=== PATIENT | female | born 1970 | race Caucasian/White ===

== ENCOUNTER 2017-01-12 09:47 | Emergency (ER) | payer MEDICAID ==
[~2017-01-12] VITALS: Ht 152.4 cm; Wt 86.2 kg
[~2017-01-12 09:47] MED LIST: ACET650S53 PO; Acetaminophen/Hydrocodone Bi PO; IBUP-1842 PO
[2017-01-12 10:11] VITALS: BP 136/89
--- NOTE | 2017-01-12 10:46 | NUR ---
Patient ambulated to bed 04.
--- NOTE | 2017-01-12 10:47 | NUR ---
PT PRESENTS TO ER W/C/O SORE THROAT X3 DAYS. HX HTN; DENIES N/V/D; SKIN IS PINK/WARM/DRY; AAOX4 WITH EVEN AND STEADY GAIT; LUNGS CLEAR BL; HR EVEN AND REGULAR; PT DENIES ANY FEVER, CP, SOB, OR COUGH AT THIS TIME; PATIENT STATES PAIN OF 10/10 AT THIS TIME; VSS; PATIENT POSITIONED FOR COMFORT; HOB ELEVATED; BEDRAILS UP X2; BED DOWN. ER MD MADE AWARE OF PT STATUS.
--- NOTE | 2017-01-12 11:07 | NUR ---
DR MARAVILLA ASSESSING AAO PT AT BEDSIDE
[2017-01-12] MEDS ORDERED: AMOXICILLIN 500 MG CAP PO ONE (11:20)
[2017-01-12] MEDS ORDERED: LIDOCAINE VISCOUS 2% 20 ML UDC PO ONE (11:20)
--- NOTE | 2017-01-12 11:30 | NUR ---
APRIL PT TAKEN OFF THE UNIT FOR XRAY ON THE NECK VIA WHEEL CHAIR BY [email or web address]
[2017-01-12 11:57] VITALS: BP 135/98
--- NOTE | 2017-01-12 11:57 | NUR ---
Patient discharged with v/s stable. Written and verbal after care instructions given and explained. Patient alert, oriented and verbalized understanding of instructions. Ambulatory with steady gait. All questions addressed prior to discharge. ID band removed. Patient advised to follow up with PMD. Rx of ARITHROMYCIN, LIDOCAINE given. Patient educated on indication of medication including possible reaction and side effects. Opportunity to ask questions provided and answered.
== END 2017-01-12 10:46 | disposition home or self-care (01) ==
LOC: MED 09:47
DX: J02.9 Acute pharyngitis, unspecified (principal); I10 Essential (primary) hypertension
CPT/HCPCS: 70360; 71010; 99284

== ENCOUNTER 2017-06-07 11:52 | Emergency (ER) | payer MEDICAID ==
[~2017-06-07] VITALS: Ht 152.4 cm; Wt 91.9 kg
[2017-06-07 11:53] VITALS: BP 143/90
[2017-06-07] MEDS ORDERED: PROP20TA28 PO (12:01)
[2017-06-07] MEDS ORDERED: FLUO10TA4 PO (12:03)
[2017-06-07] MEDS ORDERED: GABA300C PO (12:04)
--- NOTE | 2017-06-07 13:18 | NUR ---
PT AMBULATED TO BED 3.
--- NOTE | 2017-06-07 13:20 | NUR ---
Latricia banks in [facility] - 06/07/17 at 1320 by ANNA PATIENT TO BED 3.
--- NOTE | 2017-06-07 13:20 | NUR ---
46F BIB FAMILY C/O RT LOWER BACK PAIN, RADIATES TO LEFT LOWER BACK, PRESSURE, 10/10 X 3 DAYS; PT STATES NO TRAUMA OR INJURY TO SITE AT THIS TIME; NO SWELLING NOTED TO SITE AT THIS TIME; PT C/O NAUSEA, BUT STATES NO VOMITING OR DIARRHEA AT THIS TIME; ABDOMEN SOFT, NON-TENDER, ACTIVE BOWEL SOUNDS X 4 QUADRANTS; PT AA&OX4, PERRLA, BL LUNG LUNG SOUNDS, RR EVEN/UNLABORED, SKIN IS WARM/DRY/INTACT AT THIS TIME; STEADY GAIT; PT RESTING IN BED WITH HOB ELEVATED AND IN LOWEST POSITION; POSITIONED FOR COMFORT; ER MD MADE AWARE OF STATUS. WILL CONTINUE TO MONITOR.
--- NOTE | 2017-06-07 13:25 | NUR ---
ER MD DR. PEREZ EVALUATING PT AT BEDSIDE.
[2017-06-07] MEDS ORDERED: oxyCODONE/APAP 5/325 MG 1 TAB TAB PO ONE (13:50)
--- NOTE | 2017-06-07 13:57 | NUR ---
PT TAKEN TO CT VIA W/C ACCOMPANIED BY HUMAN RESOURCES SUPERVISOR.
[2017-06-07] MEDS ORDERED: KETOROLAC 60 MG/2 ML VIAL IM ONE (15:15)
[2017-06-07 15:46] VITALS: BP 131/88
--- NOTE | 2017-06-07 15:46 | NUR ---
Patient discharged with v/s stable. Written and verbal after care instructions given and explained. Patient alert, oriented and verbalized understanding of instructions. Ambulatory with steady gait. All questions addressed prior to discharge. ID band removed. Patient advised to follow up with PMD. Rx of IBUPROFEN 800MG, PERCOCET 10MG-325MG TAB & FLEXERIL 10MG TAB given. Patient educated on indication of medication including possible reaction and side effects. Opportunity to ask questions provided and answered.
== END 2017-06-07 15:46 | disposition home or self-care (01) ==
LOC: MED 11:52
DX: S39.012A Strain of muscle, fascia and tendon of lower back, initial encounter (principal); I10 Essential (primary) hypertension; Z90.89 Acquired absence of other organs; X58.XXXA Exposure to other specified factors, initial encounter; Y93.89 Activity, other specified; Y92.89 Other specified places as the place of occurrence of the external cause; Y99.8 Other external cause status
CPT/HCPCS: 72110; 81002; 81025; 96372; 99284; J1885

== ENCOUNTER 2017-11-17 12:35 | Emergency (ER) | payer MEDICAID ==
[~2017-11-17] VITALS: Ht 152.4 cm; Wt 94.3 kg
[~2017-11-17 12:35] MED LIST changes: +FLUO10TA4 PO; +GABA300C PO; +PROP20TA28 PO
[2017-11-17 12:43] VITALS: BP 138/93
[2017-11-17] MEDS ORDERED: SIMV10TA1 PO (12:49)
[2017-11-17] MEDS ORDERED: ACET-2858 PO (12:49)
[2017-11-17] MEDS ORDERED: ESTR1TAB19 PO (12:49)
[2017-11-17] MEDS ORDERED: NACL 0.9% 1,000 ML IV SCH (14:02)
[2017-11-17] MEDS ORDERED: FAMOTIDINE 20 MG/2 ML VIAL IVP ONE (14:05)
[2017-11-17] MEDS ORDERED: ONDANSETRON 4 MG/2 ML VIAL IVP ONE (14:05)
[2017-11-17] MEDS ORDERED: KETOROLAC 30 MG/ML VIAL IVP ONE (14:05)
[2017-11-17] MEDS ORDERED: diphenhydrAMINE 50 MG/ML VIAL IVP ONE (14:05)
[2017-11-17] MEDS ORDERED: HYDROmorphone PFS 2 MG/ML SYR IVP ONE (14:05)
[2017-11-17 15:01] LABS: BASOPHILS # (AUTO) 0.3 K/uL (0.00-0.22); EOSINOPHILS # (AUTO) 1.1 K/uL (0-0.4); HEMATOCRIT 38.5 % (36-48); HEMOGLOBIN 12.9 g/dL (12.0-16.0); MEAN CORPUSCULAR HEMOGLOBIN 28 pg (27-31); MEAN CORPUSCULAR HGB CONC 34 g/dL (33-37); MEAN CORPUSCULAR VOLUME 83 fL (80-94); MONOCYTES # (AUTO) 0.9 K/uL (0.8-1.0); NEUTROPHILS # (AUTO) 4.4 K/uL (1.8-7.7); PLATELET COUNT (AUTO) 307 K/uL (140-450); RED BLOOD CELL COUNT(AUTO) 4.63 MIL/uL (4.20-5.40); RED CELL DISTRIBUTION WIDTH 12.8 % (11.6-13.7); WHITE BLOOD COUNT (AUTO) 9.8 K/uL (4.8-10.8)
[2017-11-17 15:09] LABS: ANION GAP 14.9 (8-16); CREATININE 0.8 mg/dL (0.6-1.3); POTASSIUM 3.9 mmol/L (3.5-5.1)
[2017-11-17 15:15] LABS: ALBUMIN 3.6 g/dL (3.4-5.0); TOTAL BILIRUBIN 0.2 mg/dL (0.0-1.0)
[2017-11-17 15:58] LABS: APPEARANCE,URINE CLEAR (CLEAR); BILIRUBIN,URINE NEGATIVE (NEGATIVE); BLOOD, URINE 1+ (NEGATIVE); COLOR,URINE YELLOW (YELLOW); LEUKOCYTE ESTERASE ,URINE NEGATIVE (NEGATIVE); NITRITE, URINE NEGATIVE (NEGATIVE); PH,URINE 5.5 (5.0-9.0); UGLUCOSE NEGATIVE (NEGATIVE)
[2017-11-17 16:19] LABS: RBC,URINE 0-5 (RARE) /HPF (0-5); WBC,URINE NONE SEEN /HPF (0-5)
[2017-11-17 17:25] VITALS: BP 152/89
== END 2017-11-17 17:25 | disposition home or self-care (01) ==
LOC: MED 12:35
DX: N23 Unspecified renal colic (principal); N28.89 Other specified disorders of kidney and ureter; I10 Essential (primary) hypertension; Z79.899 Other long term (current) drug therapy
CPT/HCPCS: 36415; 74176; 80053; 81001; 82150; 83690; 84703; 85025; 96361; 96374; 96375; 99285; J1170; J1200; J1885; J2405; J3490; J7030

== ENCOUNTER 2018-06-03 20:08 | Inpatient (IN) | payer MEDICAID ==
[~2018-06-03] VITALS: Ht 152.4 cm; Wt 96.2 kg
[~2018-06-03 20:08] MED LIST changes: +ACET-2858 PO; -ACET650S53 PO; -Acetaminophen/Hydrocodone Bi PO; +ESTR1TAB19 PO; -FLUO10TA4 PO; -IBUP-1842 PO; +SIMV10TA1 PO
[2018-06-03 20:14] VITALS: BP 130/78
--- NOTE | 2018-06-03 20:17 | NUR ---
TO BED # 11 AMBULATORY, REPORT GIVEN TO HELEN RN
--- NOTE | 2018-06-03 20:25 | NUR ---
PATIENT IS A 47 Y/O FEMALE WHO PRESENTS TO THE ED C/O BACK PAIN. PT STATES THAT IT STARTED X3 DAYS AGO. PT REPORTS 10/10 ACHING LOW BACK PAIN THAT RADIATES TO THE ABDOMEN. PT DENIES CP, SOB, N/V/D. PT AWAKE AND ALERT, RR EVEN/UNLABORED. PT REPOSITIONED FOR COMFORT, BED IN LOWEST POSITION. ER MD DR. GREENE NOTIFIED. WILL CONTINUE TO MONITOR.
[2018-06-03] MEDS ORDERED: NACL 0.9% 1,000 ML IV SCH (22:33)
[2018-06-03] MEDS ORDERED: KETOROLAC 30 MG/ML VIAL IVP ONE (22:35)
[2018-06-03 22:56] LABS: HEMATOCRIT 38.5 % (36-48); HEMOGLOBIN 12.4 g/dL (12.0-16.0); MEAN CORPUSCULAR HEMOGLOBIN 27 pg (27-31); MEAN CORPUSCULAR HGB CONC 32 g/dL (33-37); MEAN CORPUSCULAR VOLUME 84.8 fL (80-94); PLATELET COUNT (AUTO) 384 K/uL (140-450); RED BLOOD CELL COUNT(AUTO) 4.54 MIL/uL (4.20-5.40); RED CELL DISTRIBUTION WIDTH 13.6 % (11.6-13.7); WHITE BLOOD COUNT (AUTO) 13.2 K/uL (4.8-10.8)
[2018-06-03 22:58] LABS: APPEARANCE,URINE HAZY (CLEAR); BILIRUBIN,URINE NEGATIVE (NEGATIVE); BLOOD, URINE 2+ (NEGATIVE); COLOR,URINE YELLOW (YELLOW); LEUKOCYTE ESTERASE ,URINE NEGATIVE (NEGATIVE); NITRITE, URINE NEGATIVE (NEGATIVE); UGLUCOSE NEGATIVE (NEGATIVE)
[2018-06-03 23:07] LABS: RBC,URINE 11-20 (MOD) /HPF (0-5); WBC,URINE 0-5 (RARE) /HPF (0-5)
--- NOTE | 2018-06-03 23:13 | NUR ---
PATIENT TAKEN TO CT VIA GURNEY.
[2018-06-03 23:21] LABS: EOSINOPHILS % (MANUAL) 6 % (0-4); LYMPHOCYTES % (MANUAL) 24 % (20-46); MONOCYTES % (MANUAL) 8 % (5-12)
--- NOTE | 2018-06-03 23:30 | NUR ---
PT RETURN FROM CT
[2018-06-03] MEDS ORDERED: MORPHINE SULFATE 4 MG/ML SYR IVP ONE (23:40)
[2018-06-04 00:11] LABS: ALBUMIN 3.5 g/dL (3.4-5.0); CARBON DIOXIDE 26.6 mmol/L (21-32); CREATININE 0.8 mg/dL (0.6-1.3); POTASSIUM 3.6 mmol/L (3.5-5.1); TOTAL BILIRUBIN 0.1 mg/dL (0.0-1.0)
--- NOTE | 2018-06-04 00:17 | NUR ---
Patient appears to be resting comfortably in bed. Vital Signs within normal limits. Respirations even and unlabored.
[2018-06-04] MEDS ORDERED: cefTRIAXone 2,000 MG in DEXTROSE 5% 100 ML IV ONE (00:55)
[2018-06-04] MEDS ORDERED: cefTRIAXone 2,000 MG VIAL ONE (01:27)
--- NOTE | 2018-06-04 01:30 | NUR ---
PATIENT IS RESTING AT THIS TIME. NO SIGNS OF DISTRESS.
[2018-06-04] MEDS ORDERED: ACETAMINOPHEN 325 MG TAB PO PRN (02:10)
[2018-06-04] MEDS ORDERED: ZOLPIDEM 5 MG TAB PO PRN (02:10)
[2018-06-04] MEDS ORDERED: HYDROcodone/APAP 7.5/325 MG 1 TAB PO PRN (02:10)
[2018-06-04] MEDS ORDERED: ONDANSETRON 4 MG/2 ML VIAL IVP PRN (02:10)
[2018-06-04 02:50] LABS: PROTHROMBIN TIME 9.2 secs (10.8-13.4)
--- NOTE | 2018-06-04 02:57 | NUR ---
Patient will be admitted to care of DR. CARTER. Admited to M/S. Will go to room 104B. Belongings list completed. Report to GABY WALTER.
[2018-06-04 02:58] LABS: FREE T4 (FREE THYROXINE) 0.91 ng/dL (0.76-1.46); MAGNESIUM 1.8 mg/dL (1.8-2.4); PHOSPHORUS 2.9 mg/dL (2.5-4.9)
--- NOTE | 2018-06-04 03:00 | NUR ---
RECEIVED REPORT FROM DAY SHIFT RN FOR CONTINUITY OF CARE. PT IS A/OX3, ON ROOM AIR, AMBULATORY WITH STEADY GAIT. ABLE TO MAKE NEEDS KNOWN, ABLE TO FOLLOW COMMANDS. PT SKIN IS INTACT. PT HAS 20G IV TO LEFT AC, ASYMPTOMATIC, INTACT AND PATENT. DISCUSSED PLAN OF CARE WITH PT, PT VERBALIZED UNDERSTANDING. BLOOD PRESSURE ELEVATED PT STATES IT IS DUE TO PAIN, OTHER VITAL SIGNS WITHIN NORMAL LIMITS. OBTAINED MRSA SWAB AND SENT TO LAB. PT STABLE, NO SIGNS OF DISTRESS NOTED AT THIS TIME. BED IN LOWEST POSITION, BED ALARM ON. CALL LIGHT WITHIN REACH, WILL CONTINUE TO MONITOR.
[2018-06-04] MEDS: NACL 0.9% 1,000 ML IV SCH ×3 (03:30→18:09)
[2018-06-04] MEDS: HYDROcodone/APAP 10/325 MG 1 TAB TAB PO PRN ×3 (03:44→18:36)
--- NOTE | 2018-06-04 03:44 | NUR ---
PT C/O 02/10 BACK PAIN, ADMINISTERED NORCO ORDERED FOR PAIN AT THAT LEVEL. PT TOLERATED WELL.
[2018-06-04] MEDS ORDERED: BACLOFEN 10 MG TAB PO SCH (03:55)
[2018-06-04] MEDS ORDERED: GABA300C PO (03:55)
[2018-06-04] MEDS ORDERED: BACL10TA4 PO (03:55)
[2018-06-04] MEDS ORDERED: LISI10TA11 PO (03:55)
[2018-06-04 04:15] VITALS: BP 158/85
--- NOTE | 2018-06-04 05:00 | NUR ---
PT STATES PAIN INCREASED, SPOKE TO DR BALTAZAR ABOUT IT. WILL ORDER TORADOL FOR PAIN.
[2018-06-04] MEDS: KETOROLAC 15 MG/ML VIAL IVP PRN ×2 (05:47→12:29)
--- NOTE | 2018-06-04 06:16 | NUR ---
PATIENT HAS BEEN SCREENED AND CATEGORIZED HIGH NUTRITION RISK. PATIENT WILL BE SEEN WITHIN 1-2 DAYS OF ADMISSION. 06/05/18-06/06/18 JESSICA MACK MS, RDN
--- NOTE | 2018-06-04 07:20 | NUR ---
RECEIVED BEDSIDE REPORT FROM MUFF WINDER NURSE. PATIENT IS AWAKE, ALERT AND ORIENTEDX4. BOLIVIAN SPEAKER. NO SIGNS OF DISTRESS ON ROOM AIR. SHE IS AMBULATORY. SKIN IS INTACT. L AC 20G INFUSING NS AT 125. CLEAN, DRY AND INTACT. BED IN LOW POSITION. CALL LIGHT WITHIN REACH. WILL CONTINUE TO MONITOR THE PATIENT
[2018-06-04 08:00] VITALS: BP 142/80
--- NOTE | 2018-06-04 08:05 | NUR ---
PATIENT IS EATING BREAKFAST. NO SIGNS OF DISTRESS. WILL CONTINUE TO MONITOR
--- NOTE | 2018-06-04 08:37 | NUR ---
06/04/18 RD INITIAL ASSESSMENT COMPLETED PLEASE REFER TO NUTRITION ASSESSMENT UNDER CARE ACTIVITY FOR ESTIMATED NUTRITIONAL NEEDS. RD RECOMMENDATIONS: 1. CONTINUE ON REGULAR DIET TOLERATED. 2. RD WILL F/U 7 DAYS; LOW RISK. JESSICA MACK MS, RDN
[2018-06-04] MEDS: LACTOBACILLUS RHAMNOSUS GG 1 EACH CAP PO SCH ×3 (08:55→16:39)
[2018-06-04] MEDS: LISINOPRIL 10 MG TAB PO SCH (08:56)
[2018-06-04] MEDS: GABAPENTIN 300 MG CAP PO SCH ×3 (08:56→16:39)
[2018-06-04] MEDS: DOCUSATE SODIUM 100 MG GELCAP PO SCH ×2 (08:57→20:53)
[2018-06-04] MEDS ORDERED: ESTRADIOL 1 MG TAB PO SCH (09:00)
--- NOTE | 2018-06-04 09:50 | NUR ---
ADMINISTERED PRN PAIN MEDS. PATIENT TOLERATED WELL. BED IN LOW POSITION. CALL LIGHT WITHIN REACH, WILL CONTINUE TO MONITOR
[2018-06-04] MEDS ORDERED: PATIENTS OWN TABLET PO SCH (10:20)
--- NOTE | 2018-06-04 10:54 | NUR ---
ADMINISTERED PATIENTS ESTERASE TABLET PER PHARMACY NOW. PATIENT TOLERATED WELL
--- NOTE | 2018-06-04 10:55 | NUR ---
ADMINISTERED MED. PATIENT TOLERATED WELL. BED IN LOW POSITION. CALL LIGHT WITHIN REACH. WILL CONTINUE TO MONITOR
[2018-06-04 11:11] LABS: CHOL/HDL RATIO 3.8 (1-4.5)
--- NOTE | 2018-06-04 12:33 | NUR ---
ADMINISTERED MEDS. PATIENT TOLERATED WELL. ADMINISTERED PRN TORADOL FOR PAIN 03/13. WILL REASSESS. FAMILY At bedside. will continue to monitor
[2018-06-04] MEDS: MORPHINE SULFATE 2 MG/ML SYR IVP PRN ×2 (14:30→21:12)
--- NOTE | 2018-06-04 14:34 | NUR ---
PATIENT COMPLAINS OF 10/10 PAIN. ADMINISTERED MEDS. PATIENT TOLERATED WELL. WILL CONTINUE TO MONITOR THE PATIENT
[2018-06-04 16:00] VITALS: BP 120/81
[2018-06-04] MEDS: SUCRALFATE 1 GM TAB PO SCH ×2 (16:39→20:53)
--- NOTE | 2018-06-04 16:41 | NUR ---
ADMINISTERED MEDS. PATIENT TOLERATED WELL. NO SIGNS OF DISTRESS. BED IN LOW POSITION. CALL LIGHT WITHIN REACH. WILL CONTINUE TO MONITOR
--- NOTE | 2018-06-04 18:00 | NUR ---
AT BEDSIDE. NO SIGNS OF DISTRESS. WILL CONTINUE TO MONITOR THE PATIENT.
--- NOTE | 2018-06-04 19:00 | NUR ---
GAVE BEDSIDE REPORT TO FRAUD MANAGER NURSE. PATIENT ENDORSED IN STABLE CONDITION
--- NOTE | 2018-06-04 19:05 | NUR ---
RECEIVED REPORT FROM DAY SHIFT RN FOR CONTINUITY OF CARE. PT IS FRENCH SPEAKING, A/OX4, ON ROOM AIR, AMBULATORY WITH STEADY GAIT. ABLE TO MAKE NEEDS KNOWN, ABLE TO FOLLOW COMMANDS. PT SKIN IS INTACT. PT HAS 20G IV TO LEFT AC, ASYMPTOMATIC, INTACT AND PATENT INFUSING NS@125ML/HR. DISCUSSED PLAN OF CARE WITH PT, PT VERBALIZED UNDERSTANDING. VITAL SIGNS WITHIN NORMAL LIMITS. PT STABLE, NO SIGNS OF DISTRESS NOTED AT THIS TIME. BED IN LOWEST POSITION, BED ALARM ON. CALL LIGHT WITHIN REACH, WILL CONTINUE TO MONITOR.
[2018-06-04] MEDS: SIMVASTATIN 10 MG TAB PO SCH (20:53)
--- NOTE | 2018-06-04 21:12 | NUR ---
ADMINISTERED SCHEDULED MEDICATIONS, AND PT REQUESTED MORPHINE. CAME BACK WITH MORPHINE AND ADMINISTERED IT WELL. PT TOLERATED WELL.
[2018-06-05] VITALS: BP 131/86
--- NOTE | 2018-06-05 | NUR ---
VITAL SIGNS WITHIN NORMAL LIMITS. PT STABLE, NO SIGNS OF DISTRESS NOTED AT THIS TIME. BED IN LOWEST POSITION, BED ALARM ON. CALL LIGHT WITHIN REACH, WILL CONTINUE TO MONITOR.
[2018-06-05] MEDS: NACL 0.9% 1,000 ML IV SCH ×3 (02:04→22:57)
--- NOTE | 2018-06-05 02:22 | NUR ---
PT SLEEPING, EASILY AWAKENED. PT STABLE, NO SIGNS OF DISTRESS NOTED AT THIS TIME. BED IN LOWEST POSITION, BED ALARM ON. CALL LIGHT WITHIN REACH, WILL CONTINUE TO MONITOR.
--- NOTE | 2018-06-05 04:36 | NUR ---
PT RESTING IN BED. PT STABLE, NO SIGNS OF DISTRESS NOTED AT THIS TIME. BED IN LOWEST POSITION, BED ALARM ON. CALL LIGHT WITHIN REACH, WILL CONTINUE TO MONITOR.
[2018-06-05] MEDS: KETOROLAC 15 MG/ML VIAL IVP PRN ×3 (06:07→23:22)
--- NOTE | 2018-06-05 06:08 | NUR ---
PT C/O STRONG HEADACHE 03/13. MEDICATED WITH TORADOL, PT TOLERATED WELL.
[2018-06-05 07:09] LABS: HEMATOCRIT 36.5 % (36-48); MEAN CORPUSCULAR HEMOGLOBIN 28 pg (27-31); MEAN CORPUSCULAR HGB CONC 33 g/dL (33-37); PLATELET COUNT (AUTO) 325 K/uL (140-450); RED BLOOD CELL COUNT(AUTO) 4.29 MIL/uL (4.20-5.40); RED CELL DISTRIBUTION WIDTH 13.8 % (11.6-13.7); WHITE BLOOD COUNT (AUTO) 9.4 K/uL (4.8-10.8)
[2018-06-05 07:25] LABS: ANION GAP 8.9 (8-16); CARBON DIOXIDE 27.7 mmol/L (21-32); CREATININE 0.6 mg/dL (0.6-1.3); POTASSIUM 3.6 mmol/L (3.5-5.1)
--- NOTE | 2018-06-05 07:25 | NUR ---
ENDORSED PT TO DAY SHIFT RN FOR CONTINUITY OF CARE. PT IN STABLE CONDITION.
--- NOTE | 2018-06-05 07:26 | NUR ---
RECEIVED PT FROM PM NURSE AT THE BEDSIDE. PT SLEEPING ON HER LFT SIDE. TUNISIAN SPEAKING ONLY. AWAKE, INTRODUCED SELF TO HER AND UPDATED HER BOARD. HAS NS IVF INFUSING AT 125ML/HR. IV ACCESS ON LF AC 20 G. NO SIGN OF DISTRESS. WILL CONTINUE TO MONITOR PT.
[2018-06-05 07:31] LABS: MAGNESIUM 1.7 mg/dL (1.8-2.4); PHOSPHORUS 3.5 mg/dL (2.5-4.9)
[2018-06-05 07:58] LABS: BASOPHILS % (MANUAL) 0 % (0-2); EOSINOPHILS % (MANUAL) 9 % (0-4); LYMPHOCYTES % (MANUAL) 36 % (20-46); MONOCYTES % (MANUAL) 16 % (5-12)
[2018-06-05 08:00] VITALS: BP 139/93
[2018-06-05] MEDS ORDERED: MAG SULF 2000 MG/WATER PREMIX 50 ML IV ONE (08:10)
[2018-06-05] MEDS: DOCUSATE SODIUM 100 MG GELCAP PO SCH ×2 (09:15→20:49)
[2018-06-05] MEDS: SUCRALFATE 1 GM TAB PO SCH ×4 (09:15→20:49)
[2018-06-05] MEDS: LISINOPRIL 10 MG TAB PO SCH (09:15)
[2018-06-05] MEDS: GABAPENTIN 300 MG CAP PO SCH ×3 (09:15→17:57)
[2018-06-05] MEDS: LACTOBACILLUS RHAMNOSUS GG 1 EACH CAP PO SCH ×3 (09:15→17:57)
[2018-06-05] MEDS: MORPHINE SULFATE 2 MG/ML SYR IVP PRN ×2 (09:16→20:50)
[2018-06-05] MEDS: PATIENTS OWN TABLET PO SCH (09:22)
[2018-06-05] MEDS ORDERED: TAMSULOSIN 0.4 MG CAP PO SCH (09:25)
[2018-06-05] MEDS: HYDROcodone/APAP 10/325 MG 1 TAB TAB PO PRN (11:35)
[2018-06-05] MEDS: BACLOFEN 10 MG TAB PO SCH ×2 (13:38→20:49)
[2018-06-05 16:00] VITALS: BP 113/71
--- NOTE | 2018-06-05 16:10 | NUR ---
CHECKED ON PT. STILL COMPLAINING OF PAIN. STATES HER PAIN IS THROBBING IN BACK OF HER NECK AND RADIATING TOWARDS HER BACK OF THE SPINE. MD AWARE, TALKING TO DOCTOR. ORDER NEW PAIN MEDICATION FOR PT.
[2018-06-05] MEDS ORDERED: APAP/BUTAL/CAFF 325/50/40 MG 1 TAB PO SCH (16:20)
--- NOTE | 2018-06-05 17:59 | NUR ---
ADMINISTERED MEDS TO PT ORDERED. STATES TO HAVE LESS PAIN 7/10 AT THIS TIME. WILL ASSESS HER IN IN HOUR AGAIN. FOOD TRAY AT THE BEDSIDE. EATS A SMALL PORTION. INFORMED HER TO USE CALL LIGHT FOR ANY HELP . WILL CONTINUE TO MONITOR PT.
--- NOTE | 2018-06-05 19:25 | NUR ---
ENDORSED PT TO PM NURSE FOR CONTINUITY OF CARE. PT IN STABLE CONDITION.
--- NOTE | 2018-06-05 19:26 | NUR ---
RECEIVED REPORT FROM DAY SHIFT NURSE DOUGLAS-RN AT BEDSIDE. PT FAMILY AT BEDSIDE. AOX4, ON ROOM AIR WITH LEFT AC #20G- PATENT RUNNING NS 0.9% AT 125ML/HR. DISCUSSED PLAN OF CARE AND PT VERBALIZED UNDERSTANDING. NO S/S OF RESPIRATORY DISTRESS OR DISCOMFORT NOTED AT THIS TIME. BED IN LOWEST POSITION, BED BREAKS ON, BOTH SIDE RAILS UP. BED SIDE TABLE AND CALL LIGHT ARE WITHIN REACH. WILL CONTINUE TO MONITOR.
[2018-06-05 20:00] VITALS: BP 124/95
--- NOTE | 2018-06-05 20:00 | NUR ---
VITAL SIGNS TAKEN AND TOLERATED WELL. NO S/S OF RESPIRATORY DISTRESS OR DISCOMFORT NOTED AT THIS TIME. WILL CONTINUE TO MONITOR.
[2018-06-05] MEDS: SIMVASTATIN 10 MG TAB PO SCH (20:49)
--- NOTE | 2018-06-05 20:50 | NUR ---
SCHEDULED MEDICATIONS GIVEN AND TOLERATED WELL. PT C/O PAIN 06/13 AND MEDICATED WITH MORPHINE SULFATE. NO S/S OF RESPIRATORY DISTRESS. WILL CONTINUE TO MONITOR.
--- NOTE | 2018-06-05 23:22 | NUR ---
PT CONTINUES TO C/O PAIN STATING "MORPHINE SULFATE DIDN'T REALLY HELP WITH THE PAIN." MEDICATED WITH TORADOL. NO S/S OF RESPIRATORY DISTRESS OR DISCOMFORT NOTED AT THIS TIME. WILL CONTINUE TO MONITOR.
[2018-06-06] VITALS: BP 110/62
--- NOTE | 2018-06-06 | NUR ---
NEW BAG OF IVF HUNG. VITAL SIGNS TAKEN AND TOLERATED WELL. PT STATED "TORADOL HELPS REDUCE PAIN LEVEL BETTER THAN MORPHINE." PAIN WITHIN TOLERABLE LEVEL. NO S/S OF RESPIRATORY DISTRESS OR DISCOMFORT NOTED AT THIS TIME. WILL CONTINUE TO MONITOR.
--- NOTE | 2018-06-06 02:00 | NUR ---
PT SLEEPING AT THIS TIME. NO S/S OF RESPIRATORY DISTRESS OR DISCOMFORT NOTED AT THIS TIME. WILL CONTINUE TO MONITOR.
[2018-06-06] MEDS: NACL 0.9% 1,000 ML IV SCH ×4 (02:09→23:37)
--- NOTE | 2018-06-06 04:00 | NUR ---
PT SLEEPING IN BED. NO S/S OF RESPIRATORY DISTRESS OR DISCOMFORT NOTED AT THIS TIME. WILL CONTINUE TO MONITOR.
[2018-06-06] MEDS: HYDROcodone/APAP 10/325 MG 1 TAB TAB PO PRN ×2 (05:12→11:07)
[2018-06-06] MEDS: BACLOFEN 10 MG TAB PO SCH ×3 (05:12→20:36)
--- NOTE | 2018-06-06 05:15 | NUR ---
SCHEDULED MEDICATION LIORESAL ADMINISTERED BY KILNMAN NURSE SUMMER-RN. PT TOLERATED WELL. NO S/S OF RESPIRATORY DISTRESS. PT C/O PAIN- MEDICATED WITH NORCO. PT TOLERATED WELL. WILL CONTINUE TO MONITOR.
[2018-06-06 06:37] LABS: BASOPHILS # (AUTO) 0.1 K/uL (0.00-0.22); BASOPHILS % (AUTO) 1.1 % (0.0-2.0); EOSINOPHILS # (AUTO) 1.1 K/uL (0-0.4); EOSINOPHILS % (AUTO) 11.3 % (0.0-4.0); HEMATOCRIT 36.5 % (36-48); LYMPHOCYTES # (AUTO) 2.5 K/uL (2.5-16.5); LYMPHOCYTES % (AUTO) 25.2 % (20.5-51.1); MEAN CORPUSCULAR HEMOGLOBIN 28 pg (27-31); MEAN CORPUSCULAR HGB CONC 33 g/dL (33-37); MEAN CORPUSCULAR VOLUME 84.7 fL (80-94); MONOCYTES # (AUTO) 0.8 K/uL (0.8-1.0); MONOCYTES % (AUTO) 8.2 % (1.7-9.3); NEUTROPHILS # (AUTO) 5.4 K/uL (1.8-7.7); NEUTROPHILS % (AUTO) 54.2 % (42.2-75.2); PLATELET COUNT (AUTO) 323 K/uL (140-450); RED BLOOD CELL COUNT(AUTO) 4.31 MIL/uL (4.20-5.40); RED CELL DISTRIBUTION WIDTH 13.6 % (11.6-13.7); WHITE BLOOD COUNT (AUTO) 9.9 K/uL (4.8-10.8)
[2018-06-06] MEDS: KETOROLAC 15 MG/ML VIAL IVP PRN ×2 (06:40→16:03)
--- NOTE | 2018-06-06 06:40 | NUR ---
PT CONTINUES TO C/O PAIN 03/13- TORADOL GIVEN BY DATABASE ANALYST NURSE LUCY-SABA. PT TOLERATED WELL. NO S/S OF RESPIRATORY DISTRESS AT THIS TIME. WILL CONTINUE TO MONITOR.
[2018-06-06 06:55] LABS: ANION GAP 10.8 (8-16); CREATININE 0.6 mg/dL (0.6-1.3); POTASSIUM 3.8 mmol/L (3.5-5.1)
--- NOTE | 2018-06-06 07:09 | NUR ---
ENDORSED PT CARE TO DAY SHIFT NURSE SITAL-RN FOR CONTINUITY OF CARE.
[2018-06-06 08:00] VITALS: BP 125/66
[2018-06-06] MEDS ORDERED: TAMSULOSIN 0.4 MG CAP PO SCH (08:30)
[2018-06-06] MEDS: DOCUSATE SODIUM 100 MG GELCAP PO SCH ×2 (08:45→20:36)
[2018-06-06] MEDS: LACTOBACILLUS RHAMNOSUS GG 1 EACH CAP PO SCH ×3 (08:45→16:03)
[2018-06-06] MEDS: GABAPENTIN 300 MG CAP PO SCH ×3 (08:45→16:04)
[2018-06-06] MEDS: LISINOPRIL 10 MG TAB PO SCH (08:46)
[2018-06-06] MEDS: SUCRALFATE 1 GM TAB PO SCH (08:46)
--- NOTE | 2018-06-06 08:47 | NUR ---
ADMINISTERED MEDS TO PT. TOLERATED WELL. STATES TO HAVE REDUCED STOVER. PT LYING ON BED, TALKING . NO SIGN OF DISTRESS NOTED. CALL LIGHT WITHIN REACH. WILL CONTINUE MONITORING PT.
[2018-06-06] MEDS: PATIENTS OWN TABLET PO SCH (09:00)
--- NOTE | 2018-06-06 12:45 | NUR ---
ADMINISTERED MEDS TO PT ORDERED. PT FAMILY AT THE BEDSIDE. STATES HER BACK PAIN HAS BEEN REDUCED. NO SIGN OF DISTRESS. NO STOVER AT THIS TIME. INFORMED HER TO USE CALL LIGHT FRO ANY HELP. WILL CONTINUE TO MONITOR PT.
[2018-06-06 16:00] VITALS: BP 136/83
--- NOTE | 2018-06-06 16:14 | NUR ---
CHECKED ON PT. COMPLAINING OF PAIN 9/10 ON HER BACK AND AT HEAD, ADMINISTERED TORADOL ASD THE SCHEDULED MEDS ORDERED. PT FAMILY AT THE BEDSIDE. CALL LIGHT WITHIN REACH. INFORMED HER TO USE CALL LIGHT FOR ANY HELP . WILL CONTINUE TO MONITOR PT.
--- NOTE | 2018-06-06 17:30 | NUR ---
CHECKED ON PT. FAMILY AT THE BEDSIDE. ASSESSED HER PAIN. STATES HER PAIN IS REDUCED TO 3, FEELING BETTER THAN BEFORE. NO SIGN OF DISTRESS. WILL CONTINUE TO MONITOR FL.
--- NOTE | 2018-06-06 19:23 | NUR ---
ENDORSED PT TO PM NURSE. PT IN STABLE CONDITION.
--- NOTE | 2018-06-06 19:35 | NUR ---
RECEIVED FROM AM RN IN BED AWAKE AND ALERT. ABLE TO VERBALIZE SIMPLE NEEDS WELL. CARE PLANS FOR THE NIGHT DISCUSSED WITH HER AND CALL LIGHT WITH IN REACH. DX. OF PYELONEPHRITIS. AFEBRILE. NO COMPLAINTS DONE OF ANY PAIN AT THIS TIME. WITH IVF SITE TO LAC# 20 INTACT AND NO INFILTRATION.
[2018-06-06] MEDS: SIMVASTATIN 10 MG TAB PO SCH (20:36)
--- NOTE | 2018-06-06 21:52 | NUR ---
CAME OUT FROM RESTROOM. NO PAIN COMPLAINTS. MEDICATED WITH AMBIEN REQUESTED BY PT. CALL LIGHT WITH IN REACH.
[2018-06-06 23:21] VITALS: BP 130/84
--- NOTE | 2018-06-07 01:43 | NUR ---
PT. SLEEPING WELL. NO RESTLESSNESS NOTED. CALL LIGHT WITH IN REACH.
--- NOTE | 2018-06-07 03:00 | NUR ---
PT. SLEEPING. NO RESTLESSNESS NOTED. CALL LIGHT WITH IN REACH.
[2018-06-07] MEDS: BACLOFEN 10 MG TAB PO SCH (04:33)
--- NOTE | 2018-06-07 04:36 | NUR ---
P.O. MEDICATION/BACLOFEN TAKEN WELL BY PT. CALL LIGHT WITH IN REACH. DENIES ANY DOLOR AT THIS TIME.
[2018-06-07] MEDS: KETOROLAC 15 MG/ML VIAL IVP PRN (06:13)
--- NOTE | 2018-06-07 06:34 | NUR ---
PT. AWAKE. NEW IVF LINE INSERTED TO RIGHT WRIST #22 RT LAC#20 IVF SITE INFILTRATED. MEDICATED WITH TORADOL IVP REQUESTED RT LOWER CHRONIC BACK PAIN.
--- NOTE | 2018-06-07 07:14 | NUR ---
RECEIVED REPORT FROM NIGHTSHIFT NURSE AT BEDSIDE. PATIENT IS AWAKE AT THIS TIME. PATIENT PRESENTS IN SEMI-FOWLERS POSITION. PATIENT IS ALERT AND ORIENTED X4. NO DISTRESS NOTED AT THIS TIME. PATIENT HAS AN IV ON HER LEFT HAND 22G RUNNING NACL AT 90 ML/HR. LOWERED BED TO LOWEST SETTING. CALL LIGHT WITHIN REACH OF PATIENT. UPDATED BOARD IN ROOM. WILL CONTINUE TO MONITOR PATIENT.
--- NOTE | 2018-06-07 07:14 | NUR ---
ENDORSED TO THE NEXT RN FOR CONTINUITY OF CARE AWAKE AND ALERT. NO SOB. CALL LIGHT WITH IN REACH.
[2018-06-07 08:00] VITALS: BP 135/88
[2018-06-07 08:01] LABS: BASOPHILS # (AUTO) 0.2 K/uL (0.00-0.22); BASOPHILS % (AUTO) 2.1 % (0.0-2.0); EOSINOPHILS # (AUTO) 1.2 K/uL (0-0.4); EOSINOPHILS % (AUTO) 11.4 % (0.0-4.0); HEMATOCRIT 36.8 % (36-48); HEMOGLOBIN 12.1 g/dL (12.0-16.0); LYMPHOCYTES # (AUTO) 2.2 K/uL (2.5-16.5); LYMPHOCYTES % (AUTO) 21.4 % (20.5-51.1); MEAN CORPUSCULAR HEMOGLOBIN 28 pg (27-31); MEAN CORPUSCULAR HGB CONC 33 g/dL (33-37); MONOCYTES # (AUTO) 0.7 K/uL (0.8-1.0); NEUTROPHILS % (AUTO) 58.1 % (42.2-75.2); PLATELET COUNT (AUTO) 308 K/uL (140-450); RED BLOOD CELL COUNT(AUTO) 4.33 MIL/uL (4.20-5.40); RED CELL DISTRIBUTION WIDTH 13.5 % (11.6-13.7); WHITE BLOOD COUNT (AUTO) 10.3 K/uL (4.8-10.8)
[2018-06-07] MEDS ORDERED: ACET-2863 PO (08:08)
[2018-06-07] MEDS ORDERED: SULF-59 PO (08:08)
[2018-06-07] MEDS: LISINOPRIL 10 MG TAB PO SCH (08:38)
[2018-06-07] MEDS: DOCUSATE SODIUM 100 MG GELCAP PO SCH (08:38)
[2018-06-07] MEDS: GABAPENTIN 300 MG CAP PO SCH (08:39)
[2018-06-07] MEDS: LACTOBACILLUS RHAMNOSUS GG 1 EACH CAP PO SCH (08:39)
[2018-06-07] MEDS: HYDROcodone/APAP 10/325 MG 1 TAB TAB PO PRN (08:39)
--- NOTE | 2018-06-07 08:39 | NUR ---
PATIENT TOOK AM MEDICATIONS. PATIENT TOLERATED WELL.
[2018-06-07] MEDS: PATIENTS OWN TABLET PO SCH (08:48)
[2018-06-07 08:54] LABS: ANION GAP 14.2 (8-16); CARBON DIOXIDE 24.6 mmol/L (21-32); CREATININE 0.8 mg/dL (0.6-1.3); POTASSIUM 3.8 mmol/L (3.5-5.1)
--- NOTE | 2018-06-07 10:00 | NUR ---
PATIENT RESTING AT THIS TIME. NO DISTRESS NOTED. WILL CONTINUE TO MONITOR PATIENT.
--- NOTE | 2018-06-07 11:25 | NUR ---
OFFERED TO USE TRANSLATING SERVICE FOR PATIENT DURING DISCHARGE. PATIENT REFUSED AND WANTED HER TO DAUGHTER TO LISTEN AND HELP TRANSLATE. PATIENT SIGNED ALL DISCHARGE INSTRUCTIONS. EVERYTHING CLEARLY EXPLAINED. REMOVED IV LINE FROM PATIENT WITH CATHETER STILL INTACT. PATIENT GATHERED ALL BELONGINGS. RETRIEVED PATIENT'S OWN MEDICATIONS FROM PHARMACY. REMOVED PATIENT'S IDENTIFICATION BAND. PATIENT LEFT THE UNIT IN STABLE CONDITION WITH DAUGHTER.
== END 2018-06-07 11:25 | disposition home or self-care (01) | DRG 720 ==
LOC: MED 20:08 → MTU 06-04 02:09
PROVIDERS: ADMIT Family Medicine; ATTEND Family Medicine
DX: A41.9 Sepsis, unspecified organism (principal); E87.8 Other disorders of electrolyte and fluid balance, not elsewhere classified; E66.01 Morbid (severe) obesity due to excess calories; E83.42 Hypomagnesemia; N10 Acute pyelonephritis; I10 Essential (primary) hypertension; E78.5 Hyperlipidemia, unspecified; Z68.41 Body mass index [BMI] 40.0-44.9, adult; G62.9 Polyneuropathy, unspecified; Z87.442 Personal history of urinary calculi; G89.29 Other chronic pain; Z90.49 Acquired absence of other specified parts of digestive tract; Z90.710 Acquired absence of both cervix and uterus; E78.00 Pure hypercholesterolemia, unspecified; R31.9 Hematuria, unspecified
CPT/HCPCS: 36415; 71045; 80048; 80053; 81001; 81025; 82150; 83036; 83690; 83735; 83880; 84100; 84439; 84443; 84484; 85025; 85610; 85730; 87081; 87086; 96361; 96365; 96375; 99285; J0696; J1885; J2270; J3475; J7030; J7060

== ENCOUNTER 2018-06-17 16:50 | Emergency (ER) | payer MEDICAID ==
[~2018-06-17] VITALS: Ht 152.4 cm; Wt 96.2 kg
[~2018-06-17 16:50] MED LIST changes: +ACET-2863 PO; +BACL10TA4 PO; +LISI10TA11 PO; -PROP20TA28 PO; +SULF-59 PO
[2018-06-17 17:01] VITALS: BP 144/97
[2018-06-17] MEDS ORDERED: NACL 0.9% 1,000 ML IV ONE (17:25)
[2018-06-17] MEDS ORDERED: KETOROLAC 30 MG/ML VIAL IVP ONE (17:25)
[2018-06-17 18:28] LABS: BASOPHILS # (AUTO) 0.1 K/uL (0.00-0.22); BASOPHILS % (AUTO) 1.8 % (0.0-2.0); EOSINOPHILS # (AUTO) 1.1 K/uL (0-0.4); EOSINOPHILS % (AUTO) 13.6 % (0.0-4.0); HEMATOCRIT 35.4 % (36-48); HEMOGLOBIN 11.6 g/dL (12.0-16.0); LYMPHOCYTES # (AUTO) 2.6 K/uL (2.5-16.5); LYMPHOCYTES % (AUTO) 31.4 % (20.5-51.1); MEAN CORPUSCULAR HEMOGLOBIN 28 pg (27-31); MEAN CORPUSCULAR HGB CONC 33 g/dL (33-37); MEAN CORPUSCULAR VOLUME 84.4 fL (80-94); MONOCYTES # (AUTO) 0.9 K/uL (0.8-1.0); MONOCYTES % (AUTO) 10.9 % (1.7-9.3); NEUTROPHILS # (AUTO) 3.4 K/uL (1.8-7.7); NEUTROPHILS % (AUTO) 42.3 % (42.2-75.2); PLATELET COUNT (AUTO) 287 K/uL (140-450); RED CELL DISTRIBUTION WIDTH 13.8 % (11.6-13.7); WHITE BLOOD COUNT (AUTO) 8.1 K/uL (4.8-10.8)
[2018-06-17 18:35] LABS: ANION GAP 11.2 (8-16); CARBON DIOXIDE 28.5 mmol/L (21-32); CREATININE 1.2 mg/dL (0.6-1.3); POTASSIUM 3.7 mmol/L (3.5-5.1)
[2018-06-17 18:36] LABS: APPEARANCE,URINE CLEAR (CLEAR); BILIRUBIN,URINE NEGATIVE (NEGATIVE); BLOOD, URINE 1+ (NEGATIVE); COLOR,URINE YELLOW (YELLOW); LEUKOCYTE ESTERASE ,URINE NEGATIVE (NEGATIVE); NITRITE, URINE NEGATIVE (NEGATIVE); UGLUCOSE NEGATIVE (NEGATIVE)
[2018-06-17 18:43] LABS: ALBUMIN 3.3 g/dL (3.4-5.0); TOTAL BILIRUBIN 0.2 mg/dL (0.0-1.0)
[2018-06-17] MEDS ORDERED: MORPHINE SULFATE 2 MG/ML SYR IVP ONE (18:55)
[2018-06-17 19:50] LABS: RBC,URINE 0-5 (RARE) /HPF (0-5); WBC,URINE NONE SEEN /HPF (0-5)
[2018-06-17] MEDS ORDERED: ONDANSETRON 4 MG/2 ML VIAL IVP ONE (20:10)
[2018-06-17] MEDS ORDERED: DIAZEPAM 5 MG TAB PO ONE (20:20)
[2018-06-17] MEDS ORDERED: MORPHINE SULFATE 4 MG/ML SYR IVP ONE (20:20)
[2018-06-17 21:09] VITALS: BP 139/78
== END 2018-06-17 21:10 | disposition home or self-care (01) ==
LOC: MED 16:50
DX: S39.012A Strain of muscle, fascia and tendon of lower back, initial encounter (principal); N20.0 Calculus of kidney; E78.00 Pure hypercholesterolemia, unspecified; I10 Essential (primary) hypertension; Z90.89 Acquired absence of other organs; Z79.899 Other long term (current) drug therapy; X58.XXXA Exposure to other specified factors, initial encounter; Y93.89 Activity, other specified; Y92.89 Other specified places as the place of occurrence of the external cause; Y99.8 Other external cause status
CPT/HCPCS: 36415; 74176; 80053; 81001; 81025; 85025; 87086; 96374; 96375; 96376; 99285; J1885; J2270; J2405; J7030

== ENCOUNTER 2018-10-15 12:42 | Emergency (ER) | payer MEDICAID ==
[~2018-10-15] VITALS: Ht 162.6 cm; Wt 98.1 kg
[~2018-10-15 12:42] MED LIST changes: -ACET-2858 PO; -ACET-2863 PO; +HYDR-5092 PO; +HYDR-5123 PO
[2018-10-15 12:53] VITALS: BP 151/96
[2018-10-15] MEDS: KETOROLAC 30 MG/ML VIAL IM ONE (13:45)
[2018-10-15 15:12] LABS: APPEARANCE,URINE CLEAR (CLEAR); BILIRUBIN,URINE NEGATIVE (NEGATIVE); BLOOD, URINE TRACE-I (NEGATIVE); COLOR,URINE YELLOW (YELLOW); LEUKOCYTE ESTERASE ,URINE NEGATIVE (NEGATIVE); NITRITE, URINE NEGATIVE (NEGATIVE); UGLUCOSE NEGATIVE (NEGATIVE)
[2018-10-15] MEDS: MORPHINE SULFATE 4 MG/ML SYR IM ONE (15:40)
[2018-10-15 16:19] VITALS: BP 154/93
== END 2018-10-15 16:19 | disposition home or self-care (01) ==
LOC: MED 12:42
DX: R10.9 Unspecified abdominal pain (principal); M54.9 Dorsalgia, unspecified; Z87.442 Personal history of urinary calculi; Z79.891 Long term (current) use of opiate analgesic; Z79.2 Long term (current) use of antibiotics; Z79.899 Other long term (current) drug therapy; I10 Essential (primary) hypertension
CPT/HCPCS: 74176; 81003; 81025; 96372; 99284; J1885; J2270

== ENCOUNTER 2018-11-29 18:56 | Emergency (ER) | payer MEDICAID ==
[~2018-11-29] VITALS: Ht 152.4 cm; Wt 96.2 kg
[2018-11-29 19:25] VITALS: BP 121/52
--- NOTE | 2018-11-29 19:35 | NUR ---
PT BIB SELF FOR COUGH AND CHEST PAIN FOR PAST 3 DAYS. RR EVEN AND UNLABORED, BL BS CLEAR THROUGHOUT. PT HAS PRODUCTIVE COUGH. PT SITTING IN BED, APPEARS TO BE IN NO DISTRESS, DAUGHTER AT BEDSIDE.
--- NOTE | 2018-11-29 19:35 | NUR ---
PT TO ER BED 8
--- NOTE | 2018-11-29 19:37 | NUR ---
DR MARSHALL AT BEDSIDE.
--- NOTE | 2018-11-29 19:40 | NUR ---
XRAY AT BEDSIDE.
[2018-11-29] MEDS ORDERED: methylPREDNISolone SS 125 MG/2 ML VIAL IM ONE (19:45)
[2018-11-29] MEDS ORDERED: ALBUTEROL SULFATE/IPRATROPIU 3 ML SOL IH ONE ×2 (19:45→21:00)
--- NOTE | 2018-11-29 20:09 | NUR ---
PRT AT BEDSIDE FOR TX.
--- NOTE | 2018-11-29 21:00 | NUR ---
PT LAYING IN BED, IN NO DISTRESS, NO NEW NEEDS AT THIS TIME.
[2018-11-29] MEDS ORDERED: AZITHROMYCIN 250 MG TAB PO ONE (21:35)
[2018-11-29 21:46] VITALS: BP 135/96
--- NOTE | 2018-11-29 21:46 | NUR ---
Patient discharged with v/s stable. Written and verbal after care instructions given and explained. Patient alert, oriented and verbalized understanding of instructions. Ambulatory with steady gait. All questions addressed prior to discharge. ID band removed. Patient advised to follow up with PMD. Rx of AMOXICILLIN, PREDNISONE, ALBUTEROL given. Patient educated on indication of medication including possible reaction and side effects. Opportunity to ask questions provided and answered.
== END 2018-11-29 21:46 | disposition home or self-care (01) ==
LOC: MED 18:56
DX: J40 Bronchitis, not specified as acute or chronic (principal); I10 Essential (primary) hypertension; Z79.891 Long term (current) use of opiate analgesic; Z79.2 Long term (current) use of antibiotics
CPT/HCPCS: 71045; 87086; 87804; 94640; 96372; 99284; J2930; J7620; Q0092; 36415; 93005

== ENCOUNTER 2019-01-26 09:25 | Emergency (ER) | payer MEDICAID ==
[~2019-01-26] VITALS: Ht 152.4 cm; Wt 98.0 kg
[2019-01-26 09:29] VITALS: BP 159/95
--- NOTE | 2019-01-26 09:35 | NUR ---
Patient ambulated to bed 9 at this time.
--- NOTE | 2019-01-26 10:02 | NUR ---
48 YO/F BIB FAMILY MEMBER WITH CHIEF C/O 10/10 LOWER BACK PAIN X 4 DAYS RADIATING TO BILATERAL LOWER EXTREMITIES. PT DENIES ANY TRAUMA/INJURY. -N/V/D. AFEBRILE AT THIS TIME. PMH:HTN. SIDERAIL UP X1 FOR SAFETY. PENDING ER MD EVALUATION.
[2019-01-26] MEDS ORDERED: LACTULOSE 20 GM/30 ML UDC PO ONE (10:05)
[2019-01-26] MEDS ORDERED: KETOROLAC 60 MG/2 ML VIAL IM ONE (10:05)
[2019-01-26] MEDS ORDERED: MORPHINE SULFATE 4 MG/ML SYR IM ONE (10:05)
--- NOTE | 2019-01-26 10:23 | NUR ---
PT TRANSPORTED TO RADIOLOGY.
--- NOTE | 2019-01-26 10:32 | NUR ---
PT RETURNED FROM XRAY IN STABLE CONDITION
[2019-01-26 12:50] VITALS: BP 156/91
--- NOTE | 2019-01-26 12:51 | NUR ---
Patient discharged with v/s stable. Written and verbal after care instructions given and explained. Patient alert, oriented and verbalized understanding of instructions. Ambulatory with steady gait. All questions addressed prior to discharge. ID band removed. Patient advised to follow up with PMD. Rx of Voltaren XR tablets given. Patient educated on indication of medication including possible reaction and side effects. Opportunity to ask questions provided and answered.
== END 2019-01-26 12:51 | disposition home or self-care (01) ==
LOC: MED 09:25
DX: M54.41 Lumbago with sciatica, right side (principal); I10 Essential (primary) hypertension; Z87.442 Personal history of urinary calculi; Z79.891 Long term (current) use of opiate analgesic; Z79.2 Long term (current) use of antibiotics; Z79.899 Other long term (current) drug therapy
CPT/HCPCS: 72100; 81002; 81025; 96372; 99283; J1885; J2270

== ENCOUNTER 2019-08-23 15:59 | Emergency (ER) | payer MEDICAID ==
[~2019-08-23] VITALS: Ht 152.4 cm; Wt 99.8 kg
[2019-08-23 16:08] VITALS: BP 147/85
[2019-08-23] MEDS: cefTRIAXone 1,000 MG in LIDOCAINE MPF 1% 2.1 ML IM ONE (17:27)
[2019-08-23] MEDS: KETOROLAC 30 MG/ML VIAL IM ONE (17:28)
[2019-08-23 17:33] VITALS: BP 134/77
== END 2019-08-23 17:33 | disposition home or self-care (01) ==
LOC: MED 15:59
DX: N39.0 Urinary tract infection, site not specified (principal); I10 Essential (primary) hypertension; Z79.891 Long term (current) use of opiate analgesic; Z79.899 Other long term (current) drug therapy; Z79.2 Long term (current) use of antibiotics
CPT/HCPCS: 81002; 81025; 87086; 96372; 99283; J0696; J1885; J2001

== ENCOUNTER 2019-11-28 09:37 | Inpatient (IN) | payer MEDICAID ==
[~2019-11-28] VITALS: Ht 152.4 cm; Wt 99.8 kg
[2019-11-28 09:45] VITALS: BP 132/75
--- NOTE | 2019-11-28 09:52 | NUR ---
49/F C/O BILATERAL KNEE PAIN, L>R X 1 WEEK, NO INJURY AND NON RADIATING LEFT-SIDED CHEST PAIN X 2 DAYS. PT AMBULATORY WITHOUT ASSISTIVE DEVICE. STATES CHEST PAIN STARTED WHILE LYING DOWN/AT REST YESTERDAY AND LASTED FOR 5 HOURS. STATES CP HAS BEEN INTERMITTENT TODAY, NO SPECIFIC TRIGGERS. STATES SOB ACCOMPANYING CP. HR 77, SPO2 99% ON BEDSIDE MONITOR. STATES MILD NAUSEA WITHOUT VOMITING. LEFT CHEST WALL TTP, PT DENIES INJURY. BED LOCKED & LOW, BEDRAILS UP X1, ERMD TO EVALUATE. HX- HTN, HYPERCHOL, KIDNEY STONES
[2019-11-28] MEDS ORDERED: OMEP20TC12 PO (09:59)
[2019-11-28] MEDS ORDERED: LORA5SOL14 PO (09:59)
[2019-11-28] MEDS ORDERED: GABA300C PO (09:59)
[2019-11-28] MEDS ORDERED: MECL-303 PO (09:59)
[2019-11-28] MEDS ORDERED: HYDR-5092 PO (09:59)
[2019-11-28] MEDS ORDERED: CYCL10TA13 PO (09:59)
[2019-11-28] MEDS ORDERED: MSCON15 PO (09:59)
[2019-11-28] MEDS ORDERED: ELA10 PO (09:59)
[2019-11-28] MEDS ORDERED: SUMA100T1 PO (09:59)
--- NOTE | 2019-11-28 10:02 | NUR ---
DR GALE EVALUATING PT @ BEDSIDE
--- NOTE | 2019-11-28 10:09 | NUR ---
EMT AT BEDSIDE FOR EKG
[2019-11-28] MEDS ORDERED: KETOROLAC 30 MG/ML VIAL IVP ONE (10:10)
[2019-11-28] MEDS ORDERED: NITROGLYCERIN 0.4 MG TAB SL ONE (10:10)
[2019-11-28] MEDS ORDERED: ASPIRIN 81 MG TAB.CHEW PO ONE (10:10)
--- NOTE | 2019-11-28 10:13 | NUR ---
called pharmacy to bring nitroglycerin SL--not stocked in [facility]
--- NOTE | 2019-11-28 10:28 | NUR ---
BLOOD DRAW HANDED TO DEEP FRYER ASSEMBLER
--- NOTE | 2019-11-28 10:45 | NUR ---
PT SITTING IN BED, TALKING ON CELLPHONE AT THIS TIME. STATES PAIN HAS DECREASED TO 6 OR 7/10.
[2019-11-28 11:04] LABS: BASOPHILS # (AUTO) 0.2 K/uL (0.00-0.22); BASOPHILS % (AUTO) 2.1 % (0.0-2.0); EOSINOPHILS # (AUTO) 1.4 K/uL (0-0.4); HEMATOCRIT 37.3 % (36-48); LYMPHOCYTES # (AUTO) 2.6 K/uL (2.5-16.5); LYMPHOCYTES % (AUTO) 31.3 % (20.5-51.1); MEAN CORPUSCULAR HEMOGLOBIN 27 pg (27-31); MEAN CORPUSCULAR HGB CONC 32 g/dL (33-37); MEAN CORPUSCULAR VOLUME 84.1 fL (80-94); MONOCYTES # (AUTO) 0.8 K/uL (0.8-1.0); MONOCYTES % (AUTO) 9.4 % (1.7-9.3); NEUTROPHILS # (AUTO) 3.3 K/uL (1.8-7.7); NEUTROPHILS % (AUTO) 40.2 % (42.2-75.2); PLATELET COUNT (AUTO) 371 K/uL (140-450); RED BLOOD CELL COUNT(AUTO) 4.43 MIL/uL (4.20-5.40); WHITE BLOOD COUNT (AUTO) 8.1 K/uL (4.8-10.8)
[2019-11-28 11:17] LABS: ALBUMIN 3.7 g/dL (3.4-5.0); ANION GAP 13.8 (8-16); CARBON DIOXIDE 26.8 mmol/L (21-32); CREATININE 0.9 mg/dL (0.6-1.3); POTASSIUM 3.6 mmol/L (3.5-5.1); TOTAL BILIRUBIN 0.2 mg/dL (0.0-1.0)
--- NOTE | 2019-11-28 11:45 | NUR ---
PT RESTING IN BED, NO SIGNS OF DISTRESS. STATES PAIN IS VERY MILD NOW.
[2019-11-28] MEDS: NACL 0.9% 1,000 ML IV SCH (12:02)
[2019-11-28] MEDS ORDERED: LORazepam 2 MG/ML VIAL IM/IVP PRN (12:05)
[2019-11-28] MEDS ORDERED: HYDROcodone/APAP 5/325 MG 1 TAB TAB PO PRN (12:05)
[2019-11-28] MEDS ORDERED: ZOLPIDEM 5 MG TAB PO PRN (12:05)
[2019-11-28] MEDS ORDERED: DOCUSATE SODIUM 100 MG GELCAP PO PRN (12:05)
[2019-11-28] MEDS ORDERED: MORPHINE SULFATE 2 MG/ML SYR IVP PRN (12:05)
[2019-11-28] MEDS ORDERED: NITROGLYCERIN 0.4 MG TAB SL PRN (12:05)
[2019-11-28] MEDS ORDERED: ONDANSETRON 4 MG/2 ML VIAL IM/IVP PRN (12:05)
[2019-11-28] MEDS ORDERED: ACETAMINOPHEN 325 MG TAB PO PRN (12:05)
--- NOTE | 2019-11-28 12:50 | NUR ---
Patient will be admitted to care of DR MARIN. Admited to TELE. Will go to room 105B. Belongings list completed. Report to MATHIEU WALTER.
[2019-11-28 12:55] VITALS: BP 131/72
--- NOTE | 2019-11-28 12:55 | NUR ---
RECEIVED REPORT FROM ER NURSE STAR FOR CONTINUITY OF CARE. PT IS AAOX4, PARAGUAYAN SPEAKING. PT ABLE TO MAKE NEEDS KNOWN. PT IS ON RA. SKIN IS INTACT. PT DENIES SOB OR DISTRESS. PT STATES THAT CHEST PAIN IS AT A MINIMUM BUT COMPLAINS OF A LOT OF PAIN IN THE LOWER BACK FROM CHRONIC BACK PAIN. WILL MEDICATE PT. PT AMBULATORY WITHOUT ASSISTANCE. IV IN THE LEFT AC 2OG. ADEQUATE VOIDING AND BOWEL ELIMINATION. PER PT LAST BM WAS YESTERDAY MORNING. WILL REVIEW ORDERS FOR FLUIDS. MRSA SCREEN SWAB TAKEN. DISCUSSED POC WITH PT AND PT VERBALIZED UNDERSTANDING. BOARD UPDATED. WILL ROUND FREQUENTLY ON PT.
[2019-11-28 14:14] LABS: PHOSPHORUS 2.6 mg/dL (2.5-4.9); THYROID STIMULATING HORMONE 1.49 uIU/mL (0.34-3.74)
[2019-11-28 14:21] LABS: PROTHROMBIN TIME 9.9 secs (10.8-13.4)
--- NOTE | 2019-11-28 14:25 | NUR ---
PT RESTING IN BED WITH FAMILY AT BEDSIDE. ALL NEEDS MET. WILL CONTINUE TO ROUND FREQUENTLY ON PT. BED IN LOW POSITION, CALL LIGHT WITHIN REACH.
[2019-11-28] MEDS ORDERED: HYDROcodone/APAP 10/325 MG 1 TAB TAB PO PRN (15:40)
[2019-11-28] MEDS ORDERED: CYCLOBENZAPRINE 10 MG TAB PO PRN (15:40)
[2019-11-28] MEDS ORDERED: BACLOFEN 10 MG TAB PO SCH (15:40)
[2019-11-28] MEDS ORDERED: MORPHINE TAB ER 15 MG TABER PO PRN (15:40)
[2019-11-28] MEDS ORDERED: SUMAtriptan 50 MG TAB PO PRN (15:40)
[2019-11-28 16:00] VITALS: BP 127/62
--- NOTE | 2019-11-28 16:41 | NUR ---
PT TALKING WITH FAMILY AT BEDSIDE. ALL NEEDS MET. WILL CONTINUE TO ROUND ON PT.
[2019-11-28] MEDS: GABAPENTIN 300 MG CAP PO SCH (17:33)
--- NOTE | 2019-11-28 18:49 | NUR ---
PT SITTING IN BED WATCHING TV. AT BEDSIDE. ALL NEEDS MET. WILL CONTINUE TO ROUND FREQUENTLY ON PT. BED IN LOW POSITION, CALL LIGHT WITHIN REACH.
--- NOTE | 2019-11-28 19:20 | NUR ---
RECEIVED PATIENT FROM AM SHIFT NURSE IN STABLE CONDITION FOR CONTINUITY OF CARE. THAI SPEAKING, ABLE TO MAKE NEEDS KNOWN. FAMILY AT BEDSIDE. RESPIRATIONS EVEN, UNLABORED. NO C/O PAIN. NO S/SX ACUTE DISTRESS. IV SITE TO LEFT AC 20G PATENT/INTACT, INFUSING FLUIDS WELL. CALL LIGHT WITHIN REACH. WILL CONTINUE TO MONITOR.
--- NOTE | 2019-11-28 19:35 | NUR ---
ENDORSED PT TO FORENSIC PSYCHIATRIST FOR CONTINUITY OF CARE. PT IN STABLE CONDITION AT THIS TIME.
[2019-11-28 20:00] VITALS: BP 147/86
[2019-11-28] MEDS: METOPROLOL 25 MG TAB PO SCH (20:19)
--- NOTE | 2019-11-28 20:19 | NUR ---
PATIENT C/O MUSCLE SPASMS. MEDICATED ORDERED. CALL LIGHT WITHIN REACH. WILL CONTINUE TO MONITOR.
[2019-11-28] MEDS: MECLIZINE 25 MG TAB PO SCH (20:20)
[2019-11-28] MEDS ORDERED: SIMVASTATIN 10 MG TAB PO SCH (21:00)
--- NOTE | 2019-11-28 21:19 | NUR ---
REASSESSED PATIENT. PATIENT IS ASLEEP. NO S/SX ACUTE DISTRESS. CALL LIGHT WITHIN REACH. WILL CONTINUE TO MONITOR.
--- NOTE | 2019-11-28 23:37 | NUR ---
MADE ROUNDS. PATIENT IS ASLEEP AND IN STABLE CONDITION. NO C/O PAIN. NO S/SX ACUTE DISTRESS. CALL LIGHT WITHIN REACH. WILL CONTINUE TO MONITOR.
--- NOTE | 2019-11-28 23:59 | NUR ---
MEDICATED FOR ANXIETY ORDERED. LOW STIMULI ENVIRONMENT PROVIDED FOR PATIENT. CALL LIGHT WITHIN REACH. WILL CONTINUE TO MONITOR.
[2019-11-29] VITALS: BP 114/73
--- NOTE | 2019-11-29 01:07 | NUR ---
PATIENT IS ASLEEP AND IN STABLE CONDITION. NO C/O PAIN. NO S/SX ACUTE DISTRESS. CALL LIGHT WITHIN REACH. WILL CONTINUE TO MONITOR.
[2019-11-29] MEDS ORDERED: APAP/BUTAL/CAFF 325/50/40 MG 1 TAB PO PRN (02:40)
--- NOTE | 2019-11-29 03:00 | NUR ---
MADE ROUNDS. PATIENT IS ASLEEP AND CONTINUES IN STABLE CONDITION. NO C/O PAIN. NO S/SX ACUTE DISTRESS. CALL LIGHT WITHIN REACH. WILL CONTINUE TO MONITOR.
[2019-11-29 04:00] VITALS: BP 120/80
[2019-11-29] MEDS: NACL 0.9% 1,000 ML IV SCH ×2 (04:42→05:37)
--- NOTE | 2019-11-29 05:25 | NUR ---
PATIENT ASLEEP AND IN STABLE CONDITION. NO C/O PAIN. NO S/SX ACUTE DISTRESS. CALL LIGHT WITHIN REACH. WILL CONTINUE TO MONITOR.
--- NOTE | 2019-11-29 07:20 | NUR ---
RECEIVED PT REPORT FROM PACKING TRACTOR MACHINE OPERATOR NURSE ADILENE. PT IS ASLEEP AT THIS TIME, NO S/S OF ACUTE DISTRESS OR SOB NOTED. PT IS ON ROOM AIR, SKIN IS INTACT. IV SITE L AC 20 G INFUSING NS 60 ML/HR. CALL LIGHT IS WITHIN REACH. PT IS AMBULATORY AND ABLE TO MAKE NEEDS KNOWN.
--- NOTE | 2019-11-29 07:22 | NUR ---
ENDORSED PATIENT TO AM SHIFT IN STABLE CONDITION FOR CONTINUITY OF CARE.
[2019-11-29 07:51] LABS: ANION GAP 12.1 (8-16); CARBON DIOXIDE 26.9 mmol/L (21-32); CREATININE 0.8 mg/dL (0.6-1.3)
[2019-11-29 07:53] LABS: MAGNESIUM 1.9 mg/dL (1.8-2.4)
[2019-11-29 08:00] VITALS: BP 125/80
[2019-11-29 08:19] LABS: HEMATOCRIT 33.6 % (36-48); HEMOGLOBIN 11.5 g/dL (12.0-16.0); MEAN CORPUSCULAR HEMOGLOBIN 28 pg (27-31); MEAN CORPUSCULAR HGB CONC 34 g/dL (33-37); MEAN CORPUSCULAR VOLUME 81.6 fL (80-94); PLATELET COUNT (AUTO) 380 K/uL (140-450); RED BLOOD CELL COUNT(AUTO) 4.12 MIL/uL (4.20-5.40); RED CELL DISTRIBUTION WIDTH 12.5 % (11.6-13.7); WHITE BLOOD COUNT (AUTO) 8.1 K/uL (4.8-10.8)
--- NOTE | 2019-11-29 08:24 | NUR ---
PATIENT HAS BEEN SCREENED AND CATEGORIZED MODERATE NUTRITION RISK. PATIENT WILL BE SEEN WITHIN 3-5 DAYS OF ADMISSION. 12/01/19 12/03/[address]
[2019-11-29] MEDS ORDERED: TAMSULOSIN 0.4 MG CAP PO SCH (08:30)
[2019-11-29 08:39] LABS: LYMPHOCYTES % (MANUAL) 35 % (20-46)
[2019-11-29 08:40] LABS: BASOPHILS % (MANUAL) 1 % (0-2); EOSINOPHILS % (MANUAL) 25 % (0-4); MONOCYTES % (MANUAL) 8 % (5-12)
[2019-11-29 08:42] LABS: CHOL/HDL RATIO 4.1 (1-4.5)
[2019-11-29] MEDS ORDERED: AMITRIPTYLINE 10 MG TAB PO SCH (09:00)
[2019-11-29] MEDS ORDERED: ASPIRIN 81 MG TAB.CHEW PO SCH (09:00)
[2019-11-29] MEDS ORDERED: LISINOPRIL 10 MG TAB PO SCH (09:00)
[2019-11-29] MEDS ORDERED: ESTRADIOL 1 MG TAB PO SCH (09:00)
[2019-11-29] MEDS ORDERED: ATORVASTATIN 20 MG TAB PO SCH (09:00)
[2019-11-29] MEDS: MECLIZINE 25 MG TAB PO SCH (09:07)
[2019-11-29] MEDS: GABAPENTIN 300 MG CAP PO SCH (09:08)
[2019-11-29] MEDS: METOPROLOL 25 MG TAB PO SCH (09:09)
--- NOTE | 2019-11-29 09:16 | NUR ---
AM MEDS ADMINISTERED, PT TOLERATED WELL. DAILY ORDERED ESTRADIOL TAB IS NOT AVAILABLE PER PHARMACY. PT'S DAUGHTER IS AT BEDSIDE AND WAITING FOR PT'S DISCHARGE.
--- NOTE | 2019-11-29 11:01 | NUR ---
SC INSTRUCTIONS GIVEN TO PT AND DAUGHTER. THEY VERBALIZED UNDERSTANDING OF DC INSTRUCTIONS. IV SITE AND WRIST BAND REMOVED. TELE BOX REMOVED. PT IS UP TO DATE ON HER FLU VACCINE (RECEIVED 07/2019). PT LEFT IN STABLE CONDITION WITH ALL HER BELONGINGS. Addendum: 11/29/19 at 1105 by Roslyn Le RN *DC INSTRUCTIONS
== END 2019-11-29 11:00 | disposition home or self-care (01) | DRG 203 ==
LOC: MED 09:37 → MTU 12:02
PROVIDERS: ADMIT General Practice; ATTEND General Practice
DX: M94.0 Chondrocostal junction syndrome [Tietze] (principal); E66.01 Morbid (severe) obesity due to excess calories; I11.9 Hypertensive heart disease without heart failure; G89.29 Other chronic pain; M54.9 Dorsalgia, unspecified; G43.909 Migraine, unspecified, not intractable, without status migrainosus; E78.5 Hyperlipidemia, unspecified; G62.9 Polyneuropathy, unspecified; M17.12 Unilateral primary osteoarthritis, left knee; N20.0 Calculus of kidney; F41.9 Anxiety disorder, unspecified; K21.9 Gastro-esophageal reflux disease without esophagitis; F32.9 Major depressive disorder, single episode, unspecified; Z68.41 Body mass index [BMI] 40.0-44.9, adult; Z71.3 Dietary counseling and surveillance; Z87.442 Personal history of urinary calculi; Z90.49 Acquired absence of other specified parts of digestive tract; Z90.710 Acquired absence of both cervix and uterus; Z90.721 Acquired absence of ovaries, unilateral
CPT/HCPCS: 36415; 71045; 80048; 80053; 83036; 83690; 83735; 83880; 84100; 84443; 84484; 85025; 85610; 85730; 87081; 93005; 96374; 97116; 97161-GP; 99285; J1644; J1885; J2060; J2270; J7030; J8597; Q0092

== ENCOUNTER 2020-03-28 18:07 | Emergency (ER) | payer MEDICAID ==
[~2020-03-28 18:07] MED LIST changes: +CYCL10TA13 PO; +ELA10 PO; -HYDR-5123 PO; +LORA5SOL14 PO; +MECL-303 PO; +MSCON15 PO; +OMEP20TC12 PO; -SULF-59 PO; +SUMA100T1 PO
== END 2020-03-28 20:15 | disposition left against medical advice (07) ==
LOC: MED 18:07
DX: M54.9 Dorsalgia, unspecified (principal); Z53.21 Procedure and treatment not carried out due to patient leaving prior to being seen by health care provider

== ENCOUNTER 2020-07-08 15:32 | Emergency (ER) | payer MEDICAID ==
[~2020-07-08] VITALS: Ht 152.4 cm; Wt 101.6 kg
[2020-07-08 15:54] VITALS: BP 147/89
--- NOTE | 2020-07-08 16:08 | NUR ---
49 y/o female from home c/o lower back tenderness, flank pain, dysuria, and hematuria x 4 days. Denies n/v/d. /10 burning pain upon urination. Abd soft, round, nontender to palp. Afebrile upon arrival. Positioned for comfort, VSS medhx: HTN
--- NOTE | 2020-07-08 16:10 | NUR ---
Pt ambulated to restroom for collection of urine
[2020-07-08] MEDS ORDERED: MORPHINE SULFATE 4 MG/ML SYR IVP ONE (16:20)
--- NOTE | 2020-07-08 16:41 | NUR ---
20G IV placed to left ac
[2020-07-08] MEDS ORDERED: NACL 0.9% 1,000 ML IV ONE (16:55)
[2020-07-08 17:33] LABS: APPEARANCE,URINE HAZY (CLEAR); BILIRUBIN,URINE NEGATIVE (NEGATIVE); BLOOD, URINE TRACE-I (NEGATIVE); COLOR,URINE YELLOW (YELLOW); LEUKOCYTE ESTERASE ,URINE NEGATIVE (NEGATIVE); NITRITE, URINE NEGATIVE (NEGATIVE); PH,URINE 5.5 (5.0-9.0); UGLUCOSE NEGATIVE (NEGATIVE)
--- NOTE | 2020-07-08 17:58 | NUR ---
Pt states decrease in pain, rr even and unlabored. IV site patent and intact. VSS
[2020-07-08 17:59] LABS: WBC,URINE 0-5 /HPF (0-5)
--- NOTE | 2020-07-08 18:26 | NUR ---
IV discontinued, 2x2 gauze placed over IV site
[2020-07-08 18:27] VITALS: BP 136/84
--- NOTE | 2020-07-08 18:27 | NUR ---
Patient discharged with v/s stable. Written and verbal after care instructions given and explained. Patient alert, oriented and verbalized understanding of instructions. Ambulatory with steady gait. All questions addressed prior to discharge. ID band removed. Patient advised to follow up with PMD. Rx of Naprosyn 500mg, and Cephalexin 500mg given. Patient educated on indication of medication including possible reaction and side effects. Opportunity to ask questions provided and answered.
--- NOTE | 2020-07-09 09:07 | NUR ---
CONFRIMED WITH FACILITY TECHNICIAN NS END TIME OF 1801 07/08/20
== END 2020-07-08 18:27 | disposition home or self-care (01) ==
LOC: MED 15:32
DX: N39.0 Urinary tract infection, site not specified (principal); N20.0 Calculus of kidney; I10 Essential (primary) hypertension; Z79.899 Other long term (current) drug therapy
CPT/HCPCS: 81001; 81025; 96361; 96374; 99283; J2270; J7030

== ENCOUNTER 2021-03-30 12:20 | Emergency (ER) | payer MEDICAID ==
[~2021-03-30] VITALS: Ht 152.4 cm; Wt 90.7 kg
[~2021-03-30 12:20] MED LIST changes: +AMIT10TA36 PO; -ELA10 PO; +LISI-486 PO; -LISI10TA11 PO; -LORA5SOL14 PO; +LORA5SOL77 PO; +OMEP-278 PO; -OMEP20TC12 PO
[2021-03-30 12:34] VITALS: BP 137/89
[2021-03-30 12:52] LABS: BASOPHILS # (AUTO) 0.2 K/uL (0.00-0.22); BASOPHILS % (AUTO) 1.2 % (0.0-2.0); EOSINOPHILS # (AUTO) 3.3 K/uL (0-0.4); EOSINOPHILS % (AUTO) 25.6 % (0.0-4.0); HEMATOCRIT 39.2 % (36-48); HEMOGLOBIN 12.9 g/dL (12.0-16.0); LYMPHOCYTES # (AUTO) 2.9 K/uL (2.5-16.5); LYMPHOCYTES % (AUTO) 22.4 % (20.5-51.1); MEAN CORPUSCULAR HEMOGLOBIN 28 pg (27-31); MEAN CORPUSCULAR HGB CONC 33 g/dL (33-37); MEAN CORPUSCULAR VOLUME 84.1 fL (80-94); MONOCYTES # (AUTO) 0.8 K/uL (0.8-1.0); MONOCYTES % (AUTO) 6.1 % (1.7-9.3); NEUTROPHILS # (AUTO) 5.8 K/uL (1.8-7.7); NEUTROPHILS % (AUTO) 44.7 % (42.2-75.2); PLATELET COUNT (AUTO) 564 K/uL (140-450); RED BLOOD CELL COUNT(AUTO) 4.66 MIL/uL (4.20-5.40); RED CELL DISTRIBUTION WIDTH 13.9 % (11.6-13.7)
[2021-03-30] MEDS ORDERED: KETOROLAC 30 MG/ML VIAL IVP ONE (13:10)
[2021-03-30 13:15] LABS: BILIRUBIN,URINE NEGATIVE (NEGATIVE); BLOOD, URINE NEGATIVE (NEGATIVE); COLOR,URINE YELLOW (YELLOW); LEUKOCYTE ESTERASE ,URINE NEGATIVE (NEGATIVE); NITRITE, URINE NEGATIVE (NEGATIVE); UGLUCOSE NEGATIVE (NEGATIVE)
[2021-03-30 13:19] LABS: ANION GAP 13.8 (8-16); CARBON DIOXIDE 25.9 mmol/L (21-32); CREATININE 0.9 mg/dL (0.6-1.3); POTASSIUM 3.7 mmol/L (3.5-5.1)
[2021-03-30 13:30] LABS: APPEARANCE,URINE SLIGHTLY HAZY (CLEAR)
[2021-03-30 13:31] LABS: RBC,URINE 0-5 /HPF (0-5); WBC,URINE 0-5 /HPF (0-5)
[2021-03-30] MEDS ORDERED: IBUP-2213 PO (14:18)
[2021-03-30 14:44] VITALS: BP 137/89
== END 2021-03-30 14:45 | disposition home or self-care (01) ==
LOC: MED 12:20
DX: R10.9 Unspecified abdominal pain (principal); R30.0 Dysuria; R35.0 Frequency of micturition; J45.909 Unspecified asthma, uncomplicated; K21.9 Gastro-esophageal reflux disease without esophagitis; I10 Essential (primary) hypertension; Z87.442 Personal history of urinary calculi; Z79.899 Other long term (current) drug therapy
CPT/HCPCS: 36415; 74176; 80048; 81001; 81025; 85025; 96374; 99284; J1885

== ENCOUNTER 2021-06-02 15:25 | Emergency (ER) | payer MEDICAID ==
[~2021-06-02] VITALS: Ht 154.9 cm; Wt 88.9 kg
[~2021-06-02 15:25] MED LIST changes: +IBUP-2213 PO
[2021-06-02 15:43] VITALS: BP 145/91
--- NOTE | 2021-06-02 15:47 | NUR ---
PT TO WAIT IN LOBBY.
[2021-06-02] MEDS ORDERED: KETOROLAC 60 MG/2 ML VIAL IM ONE (16:35)
--- NOTE | 2021-06-02 16:51 | NUR ---
50 Y/O FEMALE C/O RIGHT FLANK PAIN 9/10 DESCRIBES SHARP RADIATES TO SUPRAPUBIC ON RIGHT SIDE. PT STATES +N/V, DENIES FEVER/CHILLS. PMH: HTN, HLD, ASTHMA NKA
--- NOTE | 2021-06-02 17:06 | NUR ---
dr. walter bedside evaluating pt
[2021-06-02] MEDS ORDERED: MORPHINE SULFATE 4 MG/ML SYR IM ONE (17:10)
[2021-06-02] MEDS ORDERED: ACET-8386 PO (17:18)
[2021-06-02] MEDS ORDERED: IBUP-2213 PO (17:18)
[2021-06-02] MEDS ORDERED: ONDA8TAB87 PO (17:18)
[2021-06-02 18:10] VITALS: BP 127/80
--- NOTE | 2021-06-02 18:12 | NUR ---
Patient discharged with v/s stable. Written and verbal after care instructions given and explained. Patient alert, oriented and verbalized understanding of instructions. Ambulatory with steady gait. All questions addressed prior to discharge. ID band removed. Patient advised to follow up with PMD. Rx of IBU,ZOFRAN,NORCO given. Patient educated on indication of medication including possible reaction and side effects. Opportunity to ask questions provided and answered.
== END 2021-06-02 18:12 | disposition home or self-care (01) ==
LOC: MED 15:25
DX: R10.9 Unspecified abdominal pain (principal); R11.2 Nausea with vomiting, unspecified; J45.909 Unspecified asthma, uncomplicated; K21.9 Gastro-esophageal reflux disease without esophagitis; I10 Essential (primary) hypertension; E78.00 Pure hypercholesterolemia, unspecified; Z87.442 Personal history of urinary calculi
CPT/HCPCS: 81002; 81025; 96372; 99284; J1885; J2270

== ENCOUNTER 2021-07-14 12:18 | Emergency (ER) | payer MEDICAID ==
[~2021-07-14] VITALS: Ht 152.4 cm; Wt 85.3 kg
[~2021-07-14 12:18] MED LIST changes: +ACET-8386 PO; +ONDA8TAB87 PO
[2021-07-14 12:31] VITALS: BP 137/103
[2021-07-14 14:37] LABS: BASOPHILS # (AUTO) 0.1 K/uL (0.00-0.22); BASOPHILS % (AUTO) 0.8 % (0.0-2.0); EOSINOPHILS # (AUTO) 3.1 K/uL (0-0.4); EOSINOPHILS % (AUTO) 26.7 % (0.0-4.0); HEMATOCRIT 37.5 % (36-48); LYMPHOCYTES # (AUTO) 2.7 K/uL (2.5-16.5); LYMPHOCYTES % (AUTO) 22.8 % (20.5-51.1); MEAN CORPUSCULAR HEMOGLOBIN 26 pg (27-31); MEAN CORPUSCULAR HGB CONC 32 g/dL (33-37); MEAN CORPUSCULAR VOLUME 82.6 fL (80-94); MONOCYTES # (AUTO) 0.9 K/uL (0.8-1.0); MONOCYTES % (AUTO) 7.9 % (1.7-9.3); NEUTROPHILS # (AUTO) 4.9 K/uL (1.8-7.7); NEUTROPHILS % (AUTO) 41.8 % (42.2-75.2); PLATELET COUNT (AUTO) 577 K/uL (140-450); RED BLOOD CELL COUNT(AUTO) 4.54 MIL/uL (4.20-5.40); RED CELL DISTRIBUTION WIDTH 14.8 % (11.6-13.7); WHITE BLOOD COUNT (AUTO) 11.6 K/uL (4.8-10.8)
--- NOTE | 2021-07-14 14:46 | NUR ---
PT AMBULATED TO BED
[2021-07-14 14:53] LABS: ALBUMIN 3.3 g/dL (3.4-5.0); ANION GAP 13.4 (8-16); CARBON DIOXIDE 25.3 mmol/L (21-32); CREATININE 0.7 mg/dL (0.6-1.3); POTASSIUM 3.7 mmol/L (3.5-5.1); TOTAL BILIRUBIN 0.2 mg/dL (0.0-1.0)
--- NOTE | 2021-07-14 15:00 | NUR ---
50 Y/O F BIB SPOUSE FROM HOME, C/O N&V, EPIGASTRIC PAIN THAT RADIATES TO BACK FOR 2 WEEKS. DENIES DIARRHEA, CONSTIPATION, DYSURIA OR HEMATURIA. ACTIVE BOWEL SOUNDS. LUNG SOUNDS CLEAR. NON TENDER UPON PALPATION. PMH: HYPERLIPEDMIA, HTN, CHRONIC BACK PAIN NKA MED: OMEPRAZOLE
[2021-07-14] MEDS ORDERED: ONDANSETRON 4 MG ODT ONE (15:02)
[2021-07-14] MEDS ORDERED: KETOROLAC 30 MG/ML VIAL ONE (15:02)
[2021-07-14] MEDS: ONDANSETRON 4 MG ODT PO ONE (15:06)
[2021-07-14] MEDS: KETOROLAC 30 MG/ML VIAL IM ONE ×2 (15:06→17:34)
--- NOTE | 2021-07-14 15:13 | NUR ---
XRAY AT BEDSIDE
[2021-07-14 15:27] LABS: APPEARANCE,URINE CLEAR (CLEAR); BILIRUBIN,URINE NEGATIVE (NEGATIVE); BLOOD, URINE TRACE-I (NEGATIVE); COLOR,URINE YELLOW (YELLOW); LEUKOCYTE ESTERASE ,URINE NEGATIVE (NEGATIVE); NITRITE, URINE NEGATIVE (NEGATIVE); UGLUCOSE NEGATIVE (NEGATIVE)
[2021-07-14 16:14] LABS: RBC,URINE 0-5 /HPF (0-5); WBC,URINE NONE SEEN /HPF (0-5)
--- NOTE | 2021-07-14 16:22 | NUR ---
ULTRASOUND AT BEDSIDE
[2021-07-14] MEDS ORDERED: MAGN1.7529 PO (17:47)
[2021-07-14] MEDS ORDERED: ONDA-24 SL (17:53)
[2021-07-14 18:04] VITALS: BP 134/70
--- NOTE | 2021-07-14 18:04 | NUR ---
Patient discharged with v/s stable. Written and verbal after care instructions given and explained. Patient alert, oriented and verbalized understanding of instructions. Ambulatory with steady gait. All questions addressed prior to discharge. ID band removed. Patient advised to follow up with PMD. Rx of MAGNESIUM CITRATE AND ZOFRAN ODT given. Patient educated on indication of medication including possible reaction and side effects. Opportunity to ask questions provided and answered.
== END 2021-07-14 18:04 | disposition home or self-care (01) ==
LOC: MED 12:18
DX: K59.00 Constipation, unspecified (principal); R11.2 Nausea with vomiting, unspecified; R50.9 Fever, unspecified; R30.0 Dysuria; J45.909 Unspecified asthma, uncomplicated; K21.9 Gastro-esophageal reflux disease without esophagitis; I10 Essential (primary) hypertension; Z87.442 Personal history of urinary calculi; Z90.49 Acquired absence of other specified parts of digestive tract; Z98.890 Other specified postprocedural states; Z79.899 Other long term (current) drug therapy
CPT/HCPCS: 36415; 74022; 76700; 80053; 81001; 81025; 83690; 84484; 85025; 93005; 96372; 99285; J1885; Q0092; Q0162

== ENCOUNTER 2022-02-11 09:25 | Inpatient (IN) | payer MEDICAID ==
[~2022-02-11] VITALS: Ht 152.4 cm; Wt 81.2 kg
[~2022-02-11 09:25] MED LIST changes: +CYCL-655 PO; -CYCL10TA13 PO; +MAGN1.7529 PO; +ONDA-188 SL
[2022-02-11 09:29] VITALS: BP 127/97
--- NOTE | 2022-02-11 09:35 | NUR ---
AMBULATED TO ER BED 4
--- NOTE | 2022-02-11 09:44 | NUR ---
51 Y/O FEMALE C/O RIGHT FLANK PAIN 10/10 AND DYSURIA WITH YELLOW DISCHARGE X4 DAYS PT STATES FEELING BODYACHES, CHILLS AND INTERMITTENT FEVERS. REPORTS TAKING IBUPROFEN WITH MILD RELIEF. STATES N/V. PMH: HTN, CHOLESTEROL, ASTHMA NKA
--- NOTE | 2022-02-11 10:05 | NUR ---
DR. VIDAL AT PT BEDSIDE FOR FURTHER EVALUATION.
--- NOTE | 2022-02-11 10:18 | NUR ---
BRAND MARKETING COORDINATOR AT PT BEDSIDE.
[2022-02-11 10:34] LABS: BASOPHILS # (AUTO) 0.1 K/uL (0.00-0.22); BASOPHILS % (AUTO) 0.5 % (0.0-2.0); EOSINOPHILS # (AUTO) 0.7 K/uL (0-0.4); EOSINOPHILS % (AUTO) 4.6 % (0.0-4.0); HEMATOCRIT 32.3 % (36-48); HEMOGLOBIN 10.5 g/dL (12.0-16.0); LYMPHOCYTES # (AUTO) 2.3 K/uL (2.5-16.5); LYMPHOCYTES % (AUTO) 14.6 % (20.5-51.1); MEAN CORPUSCULAR HEMOGLOBIN 27 pg (27-31); MEAN CORPUSCULAR HGB CONC 33 g/dL (33-37); MEAN CORPUSCULAR VOLUME 83.2 fL (80-94); MONOCYTES # (AUTO) 2.1 K/uL (0.8-1.0); MONOCYTES % (AUTO) 13.6 % (1.7-9.3); NEUTROPHILS # (AUTO) 10.3 K/uL (1.8-7.7); NEUTROPHILS % (AUTO) 66.7 % (42.2-75.2); PLATELET COUNT (AUTO) 383 K/uL (140-450); RED BLOOD CELL COUNT(AUTO) 3.88 MIL/uL (4.20-5.40); RED CELL DISTRIBUTION WIDTH 14.3 % (11.6-13.7); WHITE BLOOD COUNT (AUTO) 15.5 K/uL (4.8-10.8)
[2022-02-11] MEDS ORDERED: KETOROLAC 15 MG/ML VIAL IVP ONE (10:35)
[2022-02-11] MEDS ORDERED: ONDANSETRON 4 MG/2 ML VIAL IVP ONE (10:35)
[2022-02-11] MEDS ORDERED: cefTRIAXone 1,000 MG VIAL ONE ×2 (10:37→14:55)
[2022-02-11] MEDS ORDERED: ONDANSETRON 4 MG/2 ML VIAL ONE (10:37)
[2022-02-11] MEDS ORDERED: KETOROLAC 15 MG/ML VIAL ONE (10:37)
[2022-02-11 10:45] LABS: ANION GAP 10.6 (8-16); CARBON DIOXIDE 26.4 mmol/L (21-32); CREATININE 0.8 mg/dL (0.6-1.3); TOTAL BILIRUBIN 0.4 mg/dL (0.0-1.0)
--- NOTE | 2022-02-11 10:46 | NUR ---
PT TAKEN TO CT VIA RTK.
--- NOTE | 2022-02-11 11:01 | NUR ---
PT TAKEN TO ER BED [address] VIA RTK.
--- NOTE | 2022-02-11 11:31 | NUR ---
PT SLEEPING IN BED, VSS, WILL CONTINUE TO MONITOR.
[2022-02-11] MEDS ORDERED: MORPHINE SULFATE 4 MG/ML SYR IVP ONE (13:20)
--- NOTE | 2022-02-11 13:33 | NUR ---
COLLECTED АНДРЕЙ VELASQUEZ, WALKED TO LAB.
[2022-02-11] MEDS ORDERED: ACETAMINOPHEN 325 MG TAB PO PRN ×3 (13:40→16:15)
[2022-02-11] MEDS ORDERED: ONDANSETRON 4 MG/2 ML VIAL IVP PRN ×3 (13:40→16:15)
[2022-02-11] MEDS ORDERED: HYDROcodone/APAP 5/325 MG 1 TAB TAB PO PRN ×4 (13:40→16:15)
--- NOTE | 2022-02-11 13:49 | NUR ---
Patient will be admitted to care of DR. MACKEY. Admited to TELE. Belongings list completed. Report to BE DONE AT PT BEDSIDE, PENDING.
[2022-02-11] MEDS: NACL 0.9% 1,000 ML IV SCH ×2 (15:03→23:40)
[2022-02-11] MEDS ORDERED: CYCLOBENZAPRINE 10 MG TAB PO PRN (15:15)
--- NOTE | 2022-02-11 15:27 | NUR ---
REPORT GIVEN TO SABA MONTANA AT PT BEDSIDE.
[2022-02-11 15:30] VITALS: BP 119/73
--- NOTE | 2022-02-11 15:30 | NUR ---
TWO ER NURSES WHEELED PT FROM ER VIA [facility]. PT ABLE TO AMBULATE FROM [facility] TO HER BED WITH STEADY GAIT. RESPIRATIONS EVEN AND UNLABORED ON 2 L NC SATTINGA T 96%. NO DISTRESS NOTED. COMPLAINING OF RIGHT FLANK PAIN 03/13. A&O4, ABLE TO LET HER NEEDS KNOWN. PT ON POLICY DIRECTOR, SR. SKIN IS INTACT, DRY AND WARM TO TOUCH. IV LINE AT LAC 18G INFUSING ROCEPHIN AT THIS TIME. FAMILY MEMBER WITH PT AT BEDSIDE. CALL LIGHT WITHIN REACH, SAFETY MEASURES IN PLACE WILL CONTINUE TO MONITOR.
--- NOTE | 2022-02-11 15:40 | NUR ---
MRSA SWAB DONE AND SENT TO LAB. PT ORIENTED TO ROOM, UNIT AND ROUTINES. WILL CONTINUE TO MONITOR.
--- NOTE | 2022-02-11 15:58 | NUR ---
DR SANDERSON AT BEDSIDE.
[2022-02-11] MEDS ORDERED: MORPHINE SULFATE 4 MG/ML SYR IVP PRN (16:05)
[2022-02-11] MEDS ORDERED: DOCUSATE SODIUM 100 MG GELCAP PO PRN ×2 (16:05→16:15)
[2022-02-11] MEDS ORDERED: MAG SULF 2000 MG/WATER PREMIX 50 ML IV PRN ×2 (16:05→16:15)
[2022-02-11] MEDS ORDERED: ZOLPIDEM 5 MG TAB PO PRN ×2 (16:05→16:15)
[2022-02-11] MEDS ORDERED: POTASSIUM CHLORIDE 10 MEQ TABER PO PRN ×2 (16:05→16:15)
[2022-02-11] MEDS ORDERED: MORPHINE SULFATE 2 MG/ML SYR IVP PRN ×2 (16:05→16:10)
[2022-02-11] MEDS ORDERED: SODIUM PHOS / POTASSIUM PHOS 1 PKT PDR PO PRN ×2 (16:05→16:15)
[2022-02-11] MEDS ORDERED: LORazepam 2 MG/ML VIAL IM/IVP PRN ×2 (16:05→16:15)
--- NOTE | 2022-02-11 16:13 | NUR ---
ADMINISTERED PRN PAIN MEDS OREDERED. WILL CONTINUE TO MONITOR.
[2022-02-11] MEDS: GABAPENTIN 300 MG CAP PO SCH (17:32)
[2022-02-11 18:04] LABS: PROTHROMBIN TIME 9.9 secs (10.8-13.4)
[2022-02-11 18:14] LABS: AMYLASE 28 U/L (25-115); FREE T4 (FREE THYROXINE) 0.83 ng/dL (0.76-1.46); HDL CHOLESTEROL 84 mg/dL (40-60); LDL (CALC) 70 mg/dL (60-100); LIPASE 52 U/L (73-393); THYROID STIMULATING HORMONE 1.06 uIU/mL (0.34-3.74); TRIGLYCERIDES 63 mg/dL (30-150)
--- NOTE | 2022-02-11 18:20 | NUR ---
PHARMACY CALLED TELLING THAT HE IS IN A PROCESS OF DOING DR'S MED RECONCILIATION ORDER AND IF SOMEONE CAN BRING PT'S ESTRODIOL FROM HOME. PT STATED THAT HER DAUGHTER CAN BRING IT HERE FOR HER. IF NOT BROUGHT HERE DURING MY SHIFT, WILL ENDORSE TO TRACTOR OPERATOR HELPER NURSE.
--- NOTE | 2022-02-11 19:20 | NUR ---
ENDORSED PT TO REFINERY OPERATOR LIGHT ENDS RECOVERY NURSE FOR CONTINUITY OF CARE. ALL NEEDS MET THROUGHOUT SHIFT. PT IS STABLE.
--- NOTE | 2022-02-11 19:30 | NUR ---
RECEIVED BEDSIDE REPORT FROM DAY SHIFT RN FOR CONTINUITY OF CARE. PT IS AWAKE WATCHING TELEVISION. PT IS COMPLAINING OF FLANK PAIN. PT IS ASKING FOR PAIN MEDICATION. WILL MEDICATE PER MD ORDER. NO OTHER COMPLAINS. NO ACUTE RESPIRATORY DISTRESS. PT HAS LEFT AC 18 GAUGE WITH NS 100 ML/HR. CALL LIGHT WITHIN REACH. ALL SAFETY MEASURES TAKEN. WILL CONTINUE TO MONITOR THE PT.
[2022-02-11] MEDS: MORPHINE SULFATE 2 MG/ML SYR IVP PRN (19:50)
[2022-02-11 20:00] VITALS: BP 115/66
[2022-02-11] MEDS: SIMVASTATIN 10 MG TAB PO SCH (20:18)
--- NOTE | 2022-02-11 20:22 | NUR ---
ALL DUE MEDS GIVEN. NO ADVERSE REACTION NOTED. PT DID COMPLAIN OF FLANK PAIN. PT WAS MEDICATED AND WAS GIVEN MORPHINE. NO OTHER COMPLAINS. WILL CONTINUE TO MONITOR THE PT.
[2022-02-12] VITALS: BP 120/71
[2022-02-12] MEDS: MORPHINE SULFATE 2 MG/ML SYR IVP PRN ×4 (00:09→19:59)
--- NOTE | 2022-02-12 00:13 | NUR ---
PT COMPLAINED OF FLANK PAIN. PT WANTED PAIN MEDICATION. PT COMPLAIN OF PAIN /. MORPHINE WAS GIVEN TO PT PER MD ORDER. NO FURTHER COMPLAINS FROM THE PT. WILL CONTINUE TO MONITOR THE PT.
[2022-02-12 02:46] LABS: APPEARANCE,URINE SL CLOUDY (CLEAR); BILIRUBIN,URINE NEGATIVE (NEGATIVE); BLOOD, URINE 1+ (NEGATIVE); COLOR,URINE YELLOW (YELLOW); LEUKOCYTE ESTERASE ,URINE 3+ (NEGATIVE); NITRITE, URINE NEGATIVE (NEGATIVE); UGLUCOSE NEGATIVE (NEGATIVE)
[2022-02-12 02:52] LABS: RBC,URINE 0-5 /HPF (0-5)
[2022-02-12 02:53] LABS: WBC,URINE 20-60 /HPF (0-5)
--- NOTE | 2022-02-12 03:14 | NUR ---
PT IS SLEEPING IN BED COMFORTABLY. PT IS NOT IN ANY DISTRESS. BREATHING EVEN AND UNLABORED. IVF RUNNING PER MD ORDER. CALL LIGHT WITHIN REACH. ALL SAFETY MEASURES TAKEN. WILL CONTINUE TO MONITOR THE PT.
[2022-02-12 03:16] LABS: BARBITURATE, URINE NEGATIVE ng/ml (NEG <=200); BENZODIAZEPINE, URINE NEGATIVE ng/mL (NEG <=200); CANNABINOID, URINE POSITIVE ng/mL (NEG <=50); COCAINE, URINE NEGATIVE ng/mL (NEG <=300); OPIATE, URINE POSITIVE ng/mL (NEG <=2000); PHENCYCLIDINE SCREEN,URINE NEGATIVE ng/mL (NEG <=25)
[2022-02-12 04:00] VITALS: BP 110/70
[2022-02-12] MEDS: NACL 0.9% 1,000 ML IV SCH ×2 (05:00→19:40)
--- NOTE | 2022-02-12 07:23 | NUR ---
ENDORSED PT TO DAY SHIFT RN FOR CONTINUITY OF CARE. PT IS STABLE.
--- NOTE | 2022-02-12 07:24 | NUR ---
RECEIVED PT FROM SALON SALES CONSULTANT NURSE FOR CONTINUITY OF CARE. RESPIRATIONS EVEN AND UNLABORED AT ROOM AIR SATTING AT 98%. NO DISTRESS NOTED. IV SITE AT LAC 18G INTACT, RUNNING NS AT 100 ML/HR. A&O4, DANISH SPEAKER, ABLE TO COMMUNICATE NEEDS. ASSISTED PT TO GO TO THE REST ROOM. PT ABLE TO AMBULATE, WITH STEADY GAIT. FOLLOWED-UP ESTRODIOL TO BE BROUGHT IN BY HER DAUGHTER FROM HOME. STATED "SHE'S COMING IN AT 10AM". LEFT PT RESTING IN BED. CALL LIGHT WITHIN REACH. SAFETY MEASURES IN PLACE. BED IS LOCKED AND ITS LOWEST POSITION.
[2022-02-12 08:00] VITALS: BP 121/73
--- NOTE | 2022-02-12 08:00 | NUR ---
Patient's Plan of Care was discussed and reviewed with MATRIX BATH OPERATOR: MARIE COHEN
[2022-02-12] MEDS: TAMSULOSIN 0.4 MG CAP PO SCH (08:29)
[2022-02-12] MEDS: GABAPENTIN 300 MG CAP PO SCH ×3 (08:29→16:56)
[2022-02-12] MEDS: AMITRIPTYLINE 10 MG TAB PO SCH (08:29)
--- NOTE | 2022-02-12 08:34 | NUR ---
ADMINISTERED SCHEDULED MORNING MEDS. PT TEACHINGS ABOUT MEDS DONE. PT VERBALIZED UNDERSTANDING. PT COMPLAINT OF RIGHT FLANK PAIN 05/13. WILL MEDICATE ORDERED.
[2022-02-12] MEDS ORDERED: estradioL 1 MG TAB PO SCH ×2 (09:00)
--- NOTE | 2022-02-12 09:30 | NUR ---
GIVEN MORPHINE FOR PAIN ORDERED [id number]
--- NOTE | 2022-02-12 10:27 | NUR ---
DC PLANNIN YRS OLD FEMALE PATIENT WAS ADMITTED FROM HOME WITH A DX OF SEPSIS ,PYELONEPHRITIS. PATIENT HAS NO MEDICAL HX. CT ABD SHOWED BILATERAL MEDULLARY NEPHROCALCINOSIS, NO SBO. CXR SHOWED NO EVIDENCE OF ACUTE CARDIOPULMONARY DISEASE. RENAL US SHOWED NO HYDRONEPHROSIS. URINE AND BLOOD CULTURE PENDING. ADMINISTERED IVF, IV ABX ROCEPHIN AND CONTINUED HOME MEDS. DC PLAN TO GO HOME WHEN STABLE CM TO FOLLOW
[2022-02-12 12:00] VITALS: BP 121/67
[2022-02-12] MEDS: estradioL 1 MG TAB PO SCH (12:18)
--- NOTE | 2022-02-12 12:20 | NUR ---
PT SITTING IN BED, EATING LUNCH. NO SIGNS OF DISTRESS NOTED. RESPIRATIONS EVEN AND UNLABORED AT ROOM AIR. NO COMPLAINTS OF PAIN AT THIS TIME. GAVE ESTRADIOL. TOLD PT THAT SHE HAS TO TAKE ESTRADIOL HOME WHEN ITS TIME FOR HER TO GO HOME SINCE IT IS HER HOME MED BROUGHT FROM HOME. PT VERBALIZED UNDERSTANDING. CALL LIGHT WITHIN REACH. SAFETY MEASURES IN PLACE.
--- NOTE | 2022-02-12 13:54 | NUR ---
DC PLANNING PATIENT IS A 51-YEAR-OLD FEMALE ADMITTED IN THE [facility]/ED ON 02/11/2022 DUE TO COMPLAINTS OF FLANK PAIN. PATIENT HAS NO HX SIGNIFICANT MEDICAL HISTORY. (PATIENT IS EQUATORIAL GUINEAN SPEAKING ONLY). ALBER MET WITH PATIENT AT BEDSIDE TO DISCUSS AND GATHER HER COLLATERAL INFORMATION. PATIENT REPORTED LIVING AT HOME WITH HER 26 YEAR OLD ADULT DAUGHTER CARO AND HER 16 YEAR OLD DAUGHTER AT HER [place]. PER PATIENT HER DAUGHTER CARO PINEDA IS HER EMERGENCY CONTACT AND MEDICAL DECISION MAKER. PATIENT REPORTED NOT HAVING ADVANCE DIRECTIVES AND WAS NOT INTERESTED ON GETTING THE INF. FORMS PROVIDED BY ALBER. PATIENT REPORTED NOT HAVING A PCP DUE TO NOT HAVING INSURANCE BUT RECENTLY HAS APPLY FOR MEDICAL AND IS GOING TO THE [facility], PER PATIENT HER LAS VISIT WITH A DOCTOR AT THE CLINIC WAS ON 02/02/2022. ALBER DISCUSS WITH PATIENT ABOUT THE IMPORTANCE OF MAKING A FOLLOW UP APPOINTMENT WITH MD. AFTER SHE IS DISCHARGE FROM [facility]. PATIENT AGREED AND STATED THAT SHE WILL MAKE HER OWN APPOINTMENT AND WILL FOLLOW AFTER SHE IS DC FROM [facility]. ALBER PROVIDED PATIENT WITH RESOURCES TO EMERGENCY BASICS INFORMATION FOR FOOD DONG, CLOTHING, AND PROVIDED A LIST OF ADDITIONAL LOW-COST CLINICS TO GET MEDICAL CARE IN HER AREA. PATIENT ALSO REPORTED NOT HAVING ANY ISSUES GETTING OR TAKING MEDICATIONS FROM THE [facility] AT [facility] [place]. PATIENT STATED NOT HAVING OR NEEDING DME AT HOME AND BEEN ACTIVE AND INDEPENDENT TO AMBULATE. PER PATIENT SHE WILL BE ASSISTED BY HER DAUGHTER WITH TRANSPORTATION BACK
--- NOTE | 2022-02-12 14:50 | NUR ---
DID PT ROUNDS. PT IN BED SLEEPING. BREATHING EVEN AND UNLABORED. NO SIGNS OF DISTRESS NOTED. CALL LIGHT WITHIN REACH. SAFETY MEASURES IN PLACE.
[2022-02-12 16:00] VITALS: BP 114/75
--- NOTE | 2022-02-12 16:42 | NUR ---
PATIENT HAS BEEN SCREENED AND CATEGORIZED LOW NUTRITION RISK. PATIENT WILL BE SEEN WITHIN 7 DAYS OF ADMISSION. 02/12/[address] BY ERASMO W[address]
--- NOTE | 2022-02-12 16:42 | NUR ---
PT COMPLAINT OF RIGHT FLANK PAIN 07/13. PRN PAIN MED ADMINISTERED BY RN.
--- NOTE | 2022-02-12 19:05 | NUR ---
ENDORSED PT TO DAG COATER NURSE FOR CONTINUITY OF CARE. ALL NEEDS MET THROUGHOUT SHIFT. PT IS STABLE.
--- NOTE | 2022-02-12 19:20 | NUR ---
RECEIVED PT FROM AM NURSE FOR CONTINUITY OF CARE. PT IS STABLE
--- NOTE | 2022-02-12 19:59 | NUR ---
PATIENT COMPLAINED OF RIGHT FLANK PAIN. MORPHINE SULFATE 2MG GIVEN IVP.
[2022-02-12 20:00] VITALS: BP 126/84
[2022-02-12] MEDS: SIMVASTATIN 10 MG TAB PO SCH (20:12)
--- NOTE | 2022-02-12 21:30 | NUR ---
ALL ROUTINE MEDICATIONS GIVEN,NO ADVERSE REACTIONS NOTED
[2022-02-13] VITALS: BP 113/86
--- NOTE | 2022-02-13 01:00 | NUR ---
SLEEPING AT THIS TIME,BREATHING EVEN AND UNLABORED ,IV INTACT AND PATENT,ALL SAFETY MEASURES IN PLACE,CALL LIGHT WITHIN EASY REACH
--- NOTE | 2022-02-13 03:00 | NUR ---
PATIENT ASLEEP,RESPIRATION EVEN AND UNLABORED,NO DISTRESS NOTED
[2022-02-13 04:00] VITALS: BP 132/74
[2022-02-13] MEDS: MORPHINE SULFATE 2 MG/ML SYR IVP PRN (05:03)
--- NOTE | 2022-02-13 05:20 | NUR ---
PATIENT COMPLAINED OF 8/10 FLANK PAIN. MORPHINE SULFATE GIVEN. WILL CONTINUE TO MONITOR
[2022-02-13] MEDS: NACL 0.9% 1,000 ML IV SCH (05:40)
--- NOTE | 2022-02-13 06:04 | NUR ---
PATIENT'S PAIN WAS REDUCED TO 0/10 ABLE TO SLEEP,RESPIRATIONS EVEN AND UNLABORED,NO DISTRESS NOTED
--- NOTE | 2022-02-13 07:27 | NUR ---
ENDORSED PT TO AM NURSE FOR CONTINUITY OF CARE.PT IS STABLE
--- NOTE | 2022-02-13 07:28 | NUR ---
RECEIVED REPORT FROM LOCAL [place] TRUCK DRIVER NURSE FOR CONTINUITY OF CARE. PT IS IN BED SLEEPING AT THIS TIME. RESPIRATIONS ARE EVEN AND UNLABORED ON ROOM AIR. NO SIGNS OF DISTRESS NOTED. PT IS ALERT AND ORIENTED X4. ABLE TO VERBALIZE NEEDS. CUBAN SPEAKING ONLY. PT IS ON CARDIAC MONITORING AT THIS TIME, SR. PT IS ON RENAL DIET, ABD IS NONTENDER, NONDISTENDED WITH BOWEL SOUNDS PRESENT. PT IS CONTINENT OF BOWEL AND BLADDER. ABLE TO AMBULATE TO REST ROOM INDEPENDENTLY. SKIN IS WARM, DRY, AND INTACT. PT HAS IV TO LAC 18G, RUNNING NS AT 100ML/HR. CALL LIGHT WITHIN REACH. ALL SAFETY MEASURES IN PLACE. WILL CONTINUE TO MONITOR.
[2022-02-13 08:00] VITALS: BP 130/81
[2022-02-13] MEDS: AMITRIPTYLINE 10 MG TAB PO SCH (08:28)
[2022-02-13] MEDS: TAMSULOSIN 0.4 MG CAP PO SCH (08:28)
[2022-02-13] MEDS: GABAPENTIN 300 MG CAP PO SCH (08:29)
[2022-02-13] MEDS: estradioL 1 MG TAB PO SCH (08:29)
--- NOTE | 2022-02-13 08:30 | NUR ---
ADMINISTERED ALL SCHEDULED MEDICATIONS. EDUCATED PT ON MEDS ADMINISTERED. PT VERBALIZED UNDERSTANDING. PT TOLERATED WELL. WILL CONTINUE TO MONITOR.
[2022-02-13 08:54] LABS: BASOPHILS # (AUTO) 0.1 K/uL (0.00-0.22); BASOPHILS % (AUTO) 0.8 % (0.0-2.0); EOSINOPHILS # (AUTO) 0.8 K/uL (0-0.4); HEMOGLOBIN 10.4 g/dL (12.0-16.0); LYMPHOCYTES # (AUTO) 2.6 K/uL (2.5-16.5); LYMPHOCYTES % (AUTO) 25.5 % (20.5-51.1); MEAN CORPUSCULAR HEMOGLOBIN 28 pg (27-31); MEAN CORPUSCULAR HGB CONC 33 g/dL (33-37); MEAN CORPUSCULAR VOLUME 84.4 fL (80-94); MONOCYTES # (AUTO) 1.3 K/uL (0.8-1.0); MONOCYTES % (AUTO) 12.1 % (1.7-9.3); NEUTROPHILS # (AUTO) 5.6 K/uL (1.8-7.7); NEUTROPHILS % (AUTO) 53.6 % (42.2-75.2); PLATELET COUNT (AUTO) 366 K/uL (140-450); RED BLOOD CELL COUNT(AUTO) 3.78 MIL/uL (4.20-5.40); RED CELL DISTRIBUTION WIDTH 14.7 % (11.6-13.7); WHITE BLOOD COUNT (AUTO) 10.4 K/uL (4.8-10.8)
[2022-02-13 09:03] LABS: MAGNESIUM 2.2 mg/dL (1.8-2.4); PHOSPHORUS 2.7 mg/dL (2.5-4.9)
[2022-02-13] MEDS ORDERED: CEPH-588 PO (09:07)
[2022-02-13 09:10] LABS: ANION GAP 8.2 (8-16); CARBON DIOXIDE 27.4 mmol/L (21-32); CREATININE 0.6 mg/dL (0.6-1.3); POTASSIUM 4.6 mmol/L (3.5-5.1)
[2022-02-13 10:20] VITALS: BP 130/81
--- NOTE | 2022-02-13 10:30 | NUR ---
INFORMED PT REGARDING DISCHARGE ORDER. PT IS OK WITH DISCHARGE PLAN. PT STATED THAT WILL COME AND PICK HER UP AT 1230. WILL BEGIN DISCHARGE PAPERWORK.
[2022-02-13 12:00] VITALS: BP 131/88
--- NOTE | 2022-02-13 13:12 | NUR ---
WENT OVER DISCHARGE PAPERWORK WITH PT. ANSWERED ALL QUESTIONS. PT SIGNED ALL PAPERWORK. REMOVED IV. IV CATHETER INTACT. WRIST BAND REMOVED. PT DISCHARGED HOME WITH . ALL BELONGINGS TAKEN UPON DISCHARGE.
== END 2022-02-13 13:11 | disposition home or self-care (01) | DRG 720 ==
LOC: MED 09:25 → MTU 13:49 → UNDODISIN 16:10
PROVIDERS: ADMIT Family Medicine; ATTEND Family Medicine
DX: A41.9 Sepsis, unspecified organism (principal); E44.1 Mild protein-calorie malnutrition; E83.51 Hypocalcemia; E83.59 Other disorders of calcium metabolism; R16.0 Hepatomegaly, not elsewhere classified; D64.9 Anemia, unspecified; N10 Acute pyelonephritis; E66.9 Obesity, unspecified; Z20.822 Contact with and (suspected) exposure to COVID-19; N29 Other disorders of kidney and ureter in diseases classified elsewhere; I87.8 Other specified disorders of veins; K21.9 Gastro-esophageal reflux disease without esophagitis; G62.9 Polyneuropathy, unspecified; Z68.35 Body mass index [BMI] 35.0-35.9, adult
CPT/HCPCS: 36415; 71045; 76770; 80048; 80053; 80305; 81001; 82150; 83036; 83605; 83690; 83735; 83880; 84100; 84439; 84443; 84484; 85025; 85610; 85730; 87040; 87081; 87086; 96365; 96375; 99285; J0696; J1885; J2270; J2405; J7060; Q0092

== ENCOUNTER 2023-08-11 16:12 | Emergency (ER) | payer OTHER ==
[~2023-08-11] VITALS: Ht 152.4 cm; Wt 87.1 kg
[~2023-08-11 16:12] MED LIST changes: -ACET-8386 PO; -AMIT10TA36 PO; +AMIT10TA47 PO; -BACL10TA4 PO; +CEPH-588 PO; +CYCL-711 PO; -IBUP-2213 PO; +LID5T TP; -LISI-486 PO; -MAGN1.7529 PO; -MECL-303 PO; -MSCON15 PO; +NAPR-54 PO; -OMEP-278 PO; -ONDA-188 SL; +PYR100 PO; +SIMV-371 PO; -SIMV10TA1 PO; -SUMA100T1 PO
[2023-08-11 16:19] VITALS: BP 140/87; PULSE 93; RESP 18; TEMP 97.7; O2SAT 98
[2023-08-11 16:30] VITALS: O2SAT 98
[2023-08-11] MEDS ORDERED: KETOROLAC 30 MG/ML VIAL IM ONE (16:50)
[2023-08-11 17:08] LABS: APPEARANCE,URINE CLEAR (CLEAR); BILIRUBIN,URINE NEGATIVE (NEGATIVE); BLOOD, URINE NEGATIVE (NEGATIVE); COLOR,URINE YELLOW (YELLOW); LEUKOCYTE ESTERASE ,URINE NEGATIVE (NEGATIVE); NITRITE, URINE NEGATIVE (NEGATIVE); PROTEIN,URINE NEGATIVE (NEGATIVE); UGLUCOSE NEGATIVE (NEGATIVE); UROBILINOGEN,URINE 0.2 EU/dL (0.2 - 1)
[2023-08-11] MEDS ORDERED: HYDROcodone/APAP 5/325 MG 1 TAB TAB PO ONE (18:30)
[2023-08-11] MEDS ORDERED: ACET-8905 PO (18:46)
[2023-08-11] MEDS ORDERED: LID5T TP (18:46)
== END 2023-08-11 19:07 | disposition home or self-care (01) ==
LOC: MED 16:12
DX: M54.50 Low back pain, unspecified (principal); J45.909 Unspecified asthma, uncomplicated; K21.9 Gastro-esophageal reflux disease without esophagitis; I10 Essential (primary) hypertension; E78.5 Hyperlipidemia, unspecified; Z87.448 Personal history of other diseases of urinary system; Z79.899 Other long term (current) drug therapy; Z79.1 Long term (current) use of non-steroidal anti-inflammatories (NSAID); Z79.2 Long term (current) use of antibiotics
CPT/HCPCS: 72110; 81003; 96372; 99284; J1885

== ENCOUNTER 2024-02-12 17:20 | Emergency (ER) | payer OTHER ==
[~2024-02-12] VITALS: Ht 152.4 cm; Wt 131.5 kg
[~2024-02-12 17:20] MED LIST changes: +ACET-8905 PO; +NAPR-337 PO; -NAPR-54 PO
[2024-02-12 17:26] VITALS: BP 189/112; PULSE 75; RESP 16; TEMP 98.3; O2SAT 96
[2024-02-12] MEDS: hydrALAZINE 20 MG/ML VIAL IVP ONE (19:07)
[2024-02-12 19:32] LABS: BASOPHILS # (AUTO) 0.1 K/uL (0.00-0.22); BASOPHILS % (AUTO) 0.5 % (0.0-2.0); EOSINOPHILS % (AUTO) 0.2 % (0.0-4.0); HEMATOCRIT 32.4 % (36-48); HEMOGLOBIN 10.6 g/dL (12.0-16.0); LYMPHOCYTES # (AUTO) 2.7 K/uL (2.5-16.5); MEAN CORPUSCULAR HEMOGLOBIN 26 pg (27-31); MEAN CORPUSCULAR HGB CONC 33 g/dL (33-37); MEAN CORPUSCULAR VOLUME 80.6 fL (80-94); MONOCYTES % (AUTO) 7.5 % (1.7-9.3); NEUTROPHILS # (AUTO) 9.6 K/uL (1.8-7.7); NEUTROPHILS % (AUTO) 71.8 % (42.2-75.2); PLATELET COUNT (AUTO) 475 K/uL (140-450); RED BLOOD CELL COUNT(AUTO) 4.02 MIL/uL (4.20-5.40); RED CELL DISTRIBUTION WIDTH 15.6 % (11.6-13.7); WHITE BLOOD COUNT (AUTO) 13.3 K/uL (4.8-10.8)
[2024-02-12] MEDS: ONDANSETRON 4 MG/2 ML VIAL IVP ONE (19:34)
[2024-02-12] MEDS: MORPHINE SULFATE 4 MG/ML SYR IVP ONE (19:35)
[2024-02-12 19:45] LABS: ANION GAP 15.1 (8-16); CALCIUM 9.1 mg/dL (8.5-10.1); CARBON DIOXIDE 23.4 mmol/L (21-32); CREATININE 0.8 mg/dL (0.6-1.3); POTASSIUM 3.5 mmol/L (3.5-5.1)
[2024-02-12 19:47] LABS: INR 0.92 (0.8-1.2); PARTIAL THROMBOPLASTIN TIME 23.9 secs (22-35.6); PROTHROMBIN TIME 9.7 secs (10.8-13.4)
[2024-02-12 19:53] LABS: ALANINE AMINOTRANSFERASE 61 U/L (12-78); ALBUMIN 3.5 g/dL (3.4-5.0); ALKALINE PHOSPHATASE 278 U/L (50-136); ASPARTATE AMINOTRANSFERASE 23 U/L (15-37); BILIRUBIN,DIRECT 0.1 mg/dL (0.0-0.3); TOTAL BILIRUBIN 0.2 mg/dL (0.0-1.0); TOTAL PROTEIN, SERUM 6.9 g/dL (6.4-8.2)
[2024-02-12] MEDS: NACL 0.9% 1,000 ML IV ONE (20:45)
[2024-02-12] MEDS ORDERED: ONDA-188 SL (21:49)
[2024-02-12] MEDS ORDERED: ACET-8905 PO (21:49)
[2024-02-12] MEDS ORDERED: AMOX1TAB8 PO (21:49)
[2024-02-12 21:50] VITALS: BP 146/77; PULSE 78; RESP 18; TEMP 97.3; O2SAT 97
== END 2024-02-12 21:50 | disposition home or self-care (01) ==
LOC: MED 17:20
DX: J32.9 Chronic sinusitis, unspecified (principal); R51.9 Headache, unspecified; I16.0 Hypertensive urgency; R04.0 Epistaxis; N28.9 Disorder of kidney and ureter, unspecified; K21.9 Gastro-esophageal reflux disease without esophagitis; Z79.899 Other long term (current) drug therapy
CPT/HCPCS: 36415; 70450; 71045; 80048; 80076; 83880; 84484; 85025; 85610; 85730; 93005; 96361; 96374; 96375; 99285; J0360; J2270; J2405; J7030